=== PATIENT | female | born 1995 | race African-American/Black ===

== ENCOUNTER 2022-09-20 15:29 | Inpatient (IN) | payer OTHER, SELFPAY ==
[2022-09-20 15:38] VITALS: BP 147/100; BP 168/110; PULSE 107; PULSE 108; RESP 18; TEMP 37.1; O2SAT 98; O2SAT 99; BMI 33.6
--- NOTE | 2022-09-20 15:51 | MHC.CARE ---
Pt was evaluated in the community by TANISHA. She is a inpatient bedsearch
--- NOTE | 2022-09-20 15:52 | ED.PSYCH ---
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 (<3.5-17.0) ng/L Total Protein (6.5-8.0) g/dL Albumin (3.5-5.0) g/dL Beta HCG, Quant mIU/mL Urine Color Urine Appearance Urine pH (5.0-9.0) Ur Specific [place] (1.005-1.025) Urine Protein (Neg-Trace) mg/dL Urine Glucose (UA) (Negative) mg/dL Urine Ketones (Negative) mg/dL Urine Blood (Negative) Urine Nitrite (Negative) Ur Leukocyte Esterase (Negative) Urine RBC (0-2) /HPF Urine WBC (0-5) /HPF Ur Squamous Epith Cells (0-2) /HPF Urine Bacteria (None Seen) Hyaline Casts (0-2) /LPF Urine Opiates Screen (Not Detect) Urine Fentanyl Screen (Not Detect) Ur Barbiturates Screen (Not Detect) Ur Phencyclidine Scrn (Not Detect) Ur Amphetamines Screen (Not Detect) U Benzodiazepines Scrn (Not Detect) Urine Cocaine Screen (Not Detect) U Marijuana (THC) Screen (Not Detect) Ethyl Alcohol < 10 mg/dL Chlam trachomat DNA PCR (Not Detect.) COVID-19 (RIDDHI) (Negative) COVID-19 Clin Com HIV 1&2 Ab/P24 Ag 4thGn (Nonreactive) N.gonorrhoeae DNA (PCR) (Not Detect.) 09/20/22 Range/Units 16:54 WBC (4.8-10.8) X10*3/uL RBC (4.20-5.50) X10*6/uL Hgb (12.0-16.0) g/dl Hct (37.0-47.0) % MCV (80.0-98.0) fL MCH (27.0-33.0) pg MCHC (31.0-35.0) g/dl RDW (11.0-16.0) % Plt Count (160-400) X10*3/uL MPV (9.4-12.3) fL Immature Gran % (Auto) (0.0-0.4) % Neut % (Auto) (45-73) % Lymph % (Auto) (20-40) % [place] % (Auto) (2-11) % Eos % (Auto) (0-4) % Baso % (Auto) (0-2) % Lymph # (Auto) (1.2-4.9) X10*3/uL [place] # (Auto) (0.1-1.2) X10*3/uL Eos # (Auto) (0.0-0.4) X10*3/uL Baso # (Auto) (0.0-0.2) X10*3/uL Abs Immat Gran (auto) (0.00-0.03) X10*3/uL Absolute Neuts (auto) (2.0-8.3) x10*3/uL Absolute Nucleated RBC (0.0-0.012) X10*3/uL Nucleated RBC % (auto) (0.0-0.2) /100WBC PT (10.0-13.1) SEC INR (0.9-1.1) Sodium (135-145) mmol/L Potassium (3.3-5.1) mmol/L Chloride (96-108) mmol/L Carbon Dioxide (22-29) mmol/L Anion Gap (12-20) BUN (9-16) mg/dL Creatinine (0.5-1.4) mg/dL Estim Creat Clear Calc Estimated GFR Random Glucose (60-115) mg/dL Calcium (8.4-10.2) mg/dL Total Bilirubin (0.0-1.0) mg/dL Direct Bilirubin (0.0-0.5) mg/dL AST (5-31) U/L ALT (0-31) U/L Alkaline Phosphatase (39-117) U/L Troponin I High Sens (<3.5-17.0) ng/L Total Protein (6.5-8.0) g/dL Albumin (3.5-5.0) g/dL Beta HCG, Quant mIU/mL Urine Color Urine Appearance Urine pH (5.0-9.0) Ur Specific [place] (1.005-1.025) Urine Protein (Neg-Trace) mg/dL Urine Glucose (UA) (Negative) mg/dL Urine Ketones (Negative) mg/dL Urine Blood (Negative) Urine Nitrite (Negative) Ur Leukocyte Esterase (Negative) Urine RBC (0-2) /HPF Urine WBC (0-5) /HPF Ur Squamous Epith Cells (0-2) /HPF Urine Bacteria (None Seen) Hyaline Casts (0-2) /LPF Urine Opiates Screen (Not Detect) Urine Fentanyl Screen (Not Detect) Ur Barbiturates Screen (Not Detect) Ur Phencyclidine Scrn (Not Detect) Ur Amphetamines Screen (Not Detect) U Benzodiazepines Scrn (Not Detect) Urine Cocaine Screen (Not Detect) U Marijuana (THC) Screen (Not Detect) Ethyl Alcohol mg/dL Chlam trachomat DNA PCR NOT DETECTED (Not Detect.) COVID-19 (RIDDHI) (Negative) COVID-19 Clin Com HIV 1&2 Ab/P24 Ag 4thGn (Nonreactive) N.gonorrhoeae DNA (PCR) NOT DETECTED (Not Detect.) <Chad Nails MD - Last Filed: 09/21/22 13:05> Discharge Plan Discharge Patient Disposition: Admitted As Inpatient <Megan Hernández MD - Last Filed: 09/20/22 17:14> Prescriptions: No Action nifedipine 30 mg tablet extended release 24hr 1 tab PO DAILY melatonin 3 mg tablet 2 tab PO QPM hydroxyzine HCl 25 mg tablet 1 tab PO TID PRN (Reason: Anxiety) aripiprazole 5 mg tablet 1.5 tab PO DAILY Slynd 4 mg (28) tablet 1 tab PO DAILY <Megan Hernández MD - Last Filed: 09/20/22 17:14>
--- NOTE | 2022-09-20 15:58 | PC.NURSE ---
per conversation with hemant (shari, ) pt was seen in the community and is a bed search.
[2022-09-20 16:11] LABS: Appearance Urine Clear; Color Urine Yellow; Glucose Urine UA Negative (Negative); Leukocyte Esterase Urine Negative (Negative); Nitrite Urine Negative (Negative); PH 7.5 (5.0-9.0); Specific Gravity - Urine <= 1.005 (1.005-1.025); UMIC TRIGGER UACC YES; Urine Blood Small (1+) (Negative); Urine Ketones Negative (Negative); Urine Protein Negative (Neg-Trace)
--- NOTE | 2022-09-20 16:12 | PC.NURSE ---
pt a/o x 3 no sob/luisito speaks in full sentences. noted skin pink warm dry. pt states that she tried to jump out of a window 3 months ago after giving pt is c/o 10/10 head, chest pain/disc and summer leg pain/disc. pt is calm and co-op. pt is a bed search.
--- NOTE | 2022-09-20 16:21 | ECG_ITS ---
Test Reason : CP Blood Pressure : / mmHG Vent. Rate : 109 BPM Atrial Rate : 109 BPM P-R Int : 164 ms QRS Dur : 078 ms QT Int : 328 ms P-R-T Axes : 070 064 051 degrees QTc Int : 441 ms Sinus tachycardia Possible Left atrial enlargement Borderline ECG No previous ECGs available Referred By: Megan Hernández Electronically Signed By:MICHAEL ENGLAND MD
[2022-09-20 16:24] LABS: MANUAL DIFF FLAG NO
[2022-09-20 16:26] LABS: Amphetamine Screen Urine Not Detected (Not Detect); Barbiturates, Urine Not Detected (Not Detect); Benzodiazepines Screen Urine Not Detected (Not Detect); Cannabinoid Screen Urine Not Detected (Not Detect); Cocaine Screen Urine Not Detected (Not Detect); Fentanyl, urine Not Detected (Not Detect); Opiate Screen Urine Not Detected (Not Detect); Phencyclidine Screen Urine Not Detected (Not Detect)
[2022-09-20 16:27] LABS: Bacteria Urine None Seen (None Seen); COVID-19 Test Negative (Negative); Hyaline Casts Urine 0-2 /LPF (0-2); RBC Urine 0-2 /HPF (0-2); Squamous Epithelial Cell Urine 0-2 /HPF (0-2); WBC Urine 0-5 /HPF (0-5)
[2022-09-20 16:28] LABS: Basophils Absolute Auto 0.1 X10*3/uL (0.0-0.2); Basophils Percent Auto 0.5 % (0-2); Eosinophils Percent Auto 0.1 % (0-4); Hematocrit 39.4 % (37.0-47.0); Hemoglobin 13.2 g/dl (12.0-16.0); Imm Gran Abs Auto 0.03 X10*3/uL (0.00-0.03); Imm Gran Pct Auto 0.2 % (0.0-0.4); Lymphocytes Absolute Auto 2.8 X10*3/uL (1.2-4.9); Lymphocytes Percent Auto 22.6 % (20-40); Mean Corpuscular HGB Conc 33.5 g/dl (31.0-35.0); Mean Corpuscular Hemoglobin 27.3 pg (27.0-33.0); Mean Corpuscular Volume 81.6 fL (80.0-98.0); Monocytes Absolute Auto 0.8 X10*3/uL (0.1-1.2); Monocytes Percent Auto 6.3 % (2-11); Neutrophils Absolute Auto 8.6 x10*3/uL (2.0-8.3); Neutrophils Percent Auto 70.3 % (45-73); Platelet Count 376 X10*3/uL (160-400); Red Blood Count 4.83 X10*6/uL (4.20-5.50); Red Cell Distribution Width 12.4 % (11.0-16.0); White Blood Count 12.3 X10*3/uL (4.8-10.8)
[2022-09-20 16:35] LABS: Prothrombin Time 11.9 SEC (10.0-13.1)
--- NOTE | 2022-09-20 16:38 | PC.NURSE ---
hemant smart sheet faxed by this rn.
--- NOTE | 2022-09-20 16:41 | PC.NURSE ---
pt's name is kizzy ([phone]).
[2022-09-20 16:42] LABS: Ethanol < 10 mg/dL
--- NOTE | 2022-09-20 16:52 | PHA.MEDREC ---
Addendum entered by Roseann Fernandez [facility] 09/21/22 11:05: Contacted patient's PCP Ling Page NP. There is no record of any medications or any talk of patient needing anything for diabetes Addendum entered by Vic Osuna [facility] 09/20/22 17:21: Spoke to patient and she said she was on a new medication for diabetes. Will follow up in am with office to get name as no claim history and [facility] Original Note: Pharmacy Consult ? Medication Reconciliation Pharmacy has completed the medication reconciliation. Spoke to her about medication history. Patient recently started abilify and the believes its not helping and working against her. Previously she was on olanzapine 2.5 in am and 7.5 bedtime
[2022-09-20 16:59] LABS: Alanine Aminotransferase 25 U/L (0-31); Albumin Level 5.2 g/dL (3.5-5.0); Alkaline Phosphatase 96 U/L (39-117); Anion Gap 17 (12-20); Aspartate Amino Transferase 27 U/L (5-31); Bilirubin Direct 0.2 mg/dL (0.0-0.5); Bilirubin Total 0.5 mg/dL (0.0-1.0); Blood Urea Nitrogen 4 mg/dL (9-16); Calcium 10.6 mg/dL (8.4-10.2); Carbon Dioxide 24 mmol/L (22-29); Chloride 103 mmol/L (96-108); Estimated Glomerular Filt Rate > 60; Glucose Random 99 mg/dL (60-115); HCG Quantitative < 2 mIU/mL; Potassium 3.9 mmol/L (3.3-5.1); Sodium 140 mmol/L (135-145); Total Protein 8.5 g/dL (6.5-8.0)
[2022-09-20 17:17] LABS: Troponin-I High Sensitivity < 3.5 ng/L (<3.5-17.0)
[2022-09-20] MEDS: HaloperidoL 5 MG TABLET PO (18:20)
[2022-09-20] MEDS: diphenhydrAMINE HCL 25 MG CAPSULE 50 MG PO (18:20)
[2022-09-20 20:00] VITALS: RESP 18
[2022-09-20 23:29] VITALS: BP 135/93; PULSE 84; RESP 15; TEMP 36.9; O2SAT 98
[2022-09-21 06:00] VITALS: RESP 18
[2022-09-21 06:33] LABS: HIV AB/AG Nonreactive (Nonreactive); HIV Num 1 0.08 S/CO (0.00-0.99)
--- NOTE | 2022-09-21 06:47 | PC.NURSE ---
report given to HARRISON Alejandre
[2022-09-21] MEDS: Nicotine 21 MG PATCH.TD24 TRANSDERMA (08:40)
[2022-09-21] MEDS: ARIPiprazole 5 MG TABLET 7.5 MG PO (08:40)
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
[2022-09-21] MEDS: NIFEdipine ER 30 MG TAB.ER.24 PO (08:56)
[2022-09-21 09:18] LABS: CT PCR NOT DETECTED (Not Detect.); NG PCR NOT DETECTED (Not Detect.)
[2022-09-21 09:24] VITALS: BP 117/90; PULSE 106; RESP 16; TEMP 36.8; O2SAT 100
[2022-09-21 14:00] VITALS: RESP 18
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
[2022-09-21 16:53] VITALS: BP 134/90; PULSE 110; RESP 16; TEMP 36.6; O2SAT 99
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
[2022-09-21] MEDS: Benztropine Mesylate 0.5 MG TABLET PO (22:07)
[2022-09-21] MEDS: Melatonin 3 MG TABLET 6 MG PO (22:08)
[2022-09-22] MEDS: Acetaminophen 325 MG TABLET 650 MG PO (02:38)
[2022-09-22] MEDS: traZODone HCL 50 MG TABLET PO (03:03)
[2022-09-22 08:23] VITALS: BP 144/98; PULSE 132; RESP 19; TEMP 36.3; O2SAT 96
[2022-09-22] MEDS: NIFEdipine ER 30 MG TAB.ER.24 PO (08:24)
[2022-09-22] MEDS: Benztropine Mesylate 0.5 MG TABLET PO (08:24)
[2022-09-22] MEDS: ARIPiprazole 10 MG TABLET PO (08:24)
[2022-09-22 09:21] LABS: Estimated Average Glucose 105 mg/dL; Hemoglobin A1c % 5.3 %
[2022-09-22 09:23] LABS: Alanine Aminotransferase 26 U/L (0-31); Albumin Level 5.1 g/dL (3.5-5.0); Alkaline Phosphatase 105 U/L (39-117); Aspartate Amino Transferase 25 U/L (5-31); Bilirubin Direct 0.3 mg/dL (0.0-0.5); Bilirubin Total 0.8 mg/dL (0.0-1.0); Cholesterol 180 mg/dL; HDL Cholesterol 52 mg/dL; LDL Cholesterol Calculated 106 mg/dl; Total Protein 8.5 g/dL (6.5-8.0); Triglycerides 112 mg/dL
[2022-09-22 09:47] LABS: Free T4 (Free Thyroxine) 1.17 ng/dL (0.71-1.85); Thyroid Stimulating Hormone 0.84 uIU/mL (0.32-4.0)
[2022-09-22 09:57] LABS: Folate 19.6 ng/mL (> or = 4.0); Vitamin B12 1694 pg/mL (200-900)
[2022-09-22] MEDS: Nicotine 21 MG PATCH.TD24 TRANSDERMA (10:39)
[2022-09-22] MEDS: QUEtiapine Fumarate 50 MG TABLET PO (15:02)
[2022-09-22 16:49] VITALS: BP 123/88; PULSE 123
--- NOTE | 2022-09-22 16:50 | PC.NURSE ---
Addendum entered by Margarita Benjamin RN 09/22/22 17:27: Per Dr. Herr recommend transferring patient to medical floor Original Note: RN was alerted by patients 1:1 staff member that patient had significant amount of vaginal bleeding. BP 123/88 and HR of 123. Charlotte Jensen WRAPPING CLERK notified.
--- NOTE | 2022-09-22 17:10 | HO.PSYCHPN ---
Subjective Subjective Date of Service: 09/22/22 Reason For Visit: Psychosis SI Interim History: Discussed with team. Pt's 1:1 reports pt has been having significant vaginal bleeding, dark in color. Pt confirms this. Of note, she is not nursing her 3 mo old, no . Hospitalist consult ordered and Dr. Herr saw pt, initially recommended obtaining CBC, OBGYN consult, and IV fluids, however decision was ultimately made to have pt transferred to [facility] for further monitoring. I spoke with pt's RN, who reports pt has presented as disorganized in the day. I spoke with pt, says she is still having night tears and she feels lifeless. She still feels jumpy, unclear if this is anxiety or akathesia, denies benefit on cogentin. Says she slept well last night. Still having AH but says this is baseline, they've always been there. Says my mood is better. Napped today. Still feeling dizzy, cramping, able to eat a little. Still wants to increase abilify. Mental Status Exam Mental Status Exam Narrative: A&O. Overweight, casual attire, laying down in bed. Good eye contact, attentive. No Tics or Tremors. No abnormal involuntary movements. Psychomotor agitation, pacing, cooperative, engaged. Non-pressured speech, spontaneous with regular rate and rhythm, normal volume and prosody. No prolonged speech latency or dysarthria. Mood is ?better,? affect is anxious. Denies SI/SIB/HI upon inquiry. Endorses command A/VH, paranoid delusional thought content. Thoughts are tangential. No known cognitive or memory impairment. Insight/ Judgment limited. Diagnostics Vital Signs (24Hr): Vital Signs - 24 hr 09/22/22 08:23 09/22/22 16:49 Temperature 97.3 F Pulse Rate 132 H 123 H Respiratory Rate 19 Blood Pressure 144/98 H 123/88 Pulse Oximetry 96 Oxygen Delivery Method Room Air BMI result Body Mass Index 33.6 Labs Results: 09/22/22 17:20 09/20/22 16:20 Labs: Laboratory Results - last 48 hr 09/20/22 09/20/22 09/20/22 16:20 16:45 16:54 Estimat Average Glucose Hemoglobin A1c % Total Bilirubin Direct Bilirubin AST ALT Alkaline Phosphatase Troponin I High Sens < 3.5 Total Protein Albumin Triglycerides Cholesterol LDL Cholesterol, Calc HDL Cholesterol Vitamin B12 Folate TSH Free T4 Chlam trachomat DNA PCR NOT DETECTED HIV 1&2 Ab/P24 Ag 4thGn Nonreactive N.gonorrhoeae DNA (PCR) NOT DETECTED 09/22/22 09/22/22 09/22/22 08:40 08:40 08:40 Estimat Average Glucose 105 Hemoglobin A1c % 5.3 Total Bilirubin 0.8 Direct Bilirubin 0.3 AST 25 ALT 26 Alkaline Phosphatase 105 Troponin I High Sens Total Protein 8.5 H Albumin 5.1 H Triglycerides 112 Cholesterol 180 LDL Cholesterol, Calc 106 HDL Cholesterol 52 Vitamin B12 1694 H Folate 19.6 TSH 0.84 Free T4 1.17 Chlam trachomat DNA PCR HIV 1&2 Ab/P24 Ag 4thGn N.gonorrhoeae DNA (PCR) Medications Medications Current Medications Acetaminophen (Acetaminophen 325 Mg Tablet) 650 mg PO Q6H PRN PRN Reason: Headache/Pain Mild Scale (1-3) Last Admin: 09/22/22 02:38 Dose: 650 mg Al Hydroxide/Mg Hydroxide (Magnesium Hydrox/Alum Hydrox 30 Ml Oral.Susp) 30 ml PO Q6H PRN PRN Reason: Heartburn/Nausea Aripiprazole (Aripiprazole 10 Mg Tablet) 10 mg PO DAILY [facility] Last Admin: 09/22/22 08:24 Dose: 10 mg Benztropine Mesylate (Benztropine Mesylate 0.5 Mg Tablet) 0.5 mg PO BID [facility] Last Admin: 09/22/22 08:24 Dose: 0.5 mg Hydroxyzine HCl (Hydroxyzine Hcl 25 Mg Tablet) 25 mg PO TID PRN PRN Reason: Anxiety Magnesium Hydroxide (Milk Of Magnesia 30 Ml Oral.Susp) 30 ml PO DAILY PRN PRN Reason: Constipation Melatonin (Melatonin 3 Mg Tablet) 6 mg PO DAILY@2100 [facility] Last Admin: 09/21/22 22:08 Dose: 6 mg Nicotine (Nicotine 21 Mg Patch.Td24) 21 mg TRANSDERMA DAILY [facility] Last Admin: 09/22/22 10:39 Dose: 21 mg Nicotine Polacrilex (Nicotine Polacrilex 2 Mg Gum) 4 mg BUCCAL Q2H PRN PRN Reason: Nicotine Cravings Nifedipine (Nifedipine Er 30 Mg Tab.Er.24) 30 mg PO DAILY [facility]; Protocol Last Admin: 09/22/22 08:24 Dose: 30 mg Non-Formulary Medication (Drospirenone (Contraceptive) [Slynd]) 1 tab PO DAILY [facility] Quetiapine Fumarate (Quetiapine Fumarate 50 Mg Tablet) 50 mg PO Q2H PRN PRN Reason: agitation Last Admin: 09/22/22 15:02 Dose: 50 mg Trazodone HCl (Trazodone Hcl 50 Mg Tablet) 50 mg PO BEDTIME PRN PRN Reason: Insomnia Last Admin: 09/22/22 03:03 Dose: 50 mg Allergies Allergies Allergy/AdvReac Type Severity Reaction Status Date / Time No Known Allergies Allergy Unverified 07/29/20 18:47 Assessment & Plan Assessment & Plan (1) Schizoaffective disorder, bipolar type: Status: Acute Code(s): F25.0 - Schizoaffective disorder, bipolar type (2) psychosis: Status: Acute Code(s): 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 Who carries a dx of schizoaffective disorder, bipolar type, PTSD. She presented to [facility] ED due to depression, SI, and command AH. Pt is 3 months . Endorses hyposomnia, mood lability, flashbacks, nightmares, and activation. Having delusional thought process. Hx of [facility], recently discharged from [facility] on abilify 7.5 mg but does not think this dose is high enough, complains of s/s of akathesia. Plan: Pt willing to trial higher dose of abilify to target psychotic sx and mood lability, will increase to 10 mg daily and add cogentin 0.5 mg BID. 09/22: Increase abilify to 15 mg, transfer to [facility] with plan to return to psych inpatient level of care for further med management and stability. Q15 min safety checks, CV Monitor response to medications. Monitor for safety in the milieu. Discharge on stabilization. Patient seen. Chart reviewed. Discussed with team. Obtain collateral contact info?as needed I spent minutes with the patient and/or on the patient floor today, greater than?50% of which was spent counseling/coordinating care. Patient educated on: diagnosis, medication risk/benefits and therapeutic strategies Reason for contiued inpatient stay Substantial Risk for: harm to self, rapid decompensation and med/psych decompensation
--- NOTE | 2022-09-22 17:17 | PM.IMHP ---
History of Present Illness Date of Service: 09/22/22 Chief Complaint: Vaginal bleed 27-year-old female on Adult psych who developed vaginal bleeding. Patient is 2 and half months of her 5th child. She had sitter present who stated there was blood on toilet paper and in toilet but could not qualify or quantify. When further questioned, patient states this happened after her last child and they did no specific intervention other than observed. At this time clinical presentation is stable however she is tachycardic. Decision was made to admit to the medical service and consult obgyn nurse Review of Systems Review of Systems: Denies chest pain Denies shortness of breath Denies nausea vomiting diarrhea Denies fever chills [facility] Medical History (Updated 09/22/22 @ 02:19 by Charlotte Jensen NP) psychosis Social History Household Members: Significant Other and Children Housing: Apartment Do you presently have visiting nurse or other home services: No Alcohol intake: current Patient Tobacco Use Status: Current everyday Tobacco user Tobacco use type: Cigarette Cigarette Packs Per Day: 2 Cigarettes Per Day: 40.0 Years Smoked: 15 Second Hand Smoke Exposure: Yes Advance Directives: No Advance Directives Information Provided: Yes service: No Sexual orientation: Straight/Heterosexual Meds Allergies Allergy/AdvReac Type Severity Reaction Status Date / Time No Known Allergies Allergy Unverified 07/29/20 18:47 Active Medications: Current Medications Acetaminophen (Acetaminophen 325 Mg Tablet) 650 mg PO Q6H PRN PRN Reason: Headache/Pain Mild Scale (1-3) Last Admin: 09/22/22 02:38 Dose: 650 mg Al Hydroxide/Mg Hydroxide (Magnesium Hydrox/Alum Hydrox 30 Ml Oral.Susp) 30 ml PO Q6H PRN PRN Reason: Heartburn/Nausea Aripiprazole (Aripiprazole 15 Mg Tablet) 15 mg PO DAILY [facility] Benztropine Mesylate (Benztropine Mesylate 0.5 Mg Tablet) 0.5 mg PO BID [facility] Last Admin: 09/22/22 08:24 Dose: 0.5 mg Hydroxyzine HCl (Hydroxyzine Hcl 25 Mg Tablet) 25 mg PO TID PRN PRN Reason: Anxiety Sodium Chloride (Ns) 500 mls @ 500 mls/hr IV .Q1H [facility] Stop: 09/22/22 18:14 Magnesium Hydroxide (Milk Of Magnesia 30 Ml Oral.Susp) 30 ml PO DAILY PRN PRN Reason: Constipation Melatonin (Melatonin 3 Mg Tablet) 6 mg PO DAILY@2100 [facility] Last Admin: 09/21/22 22:08 Dose: 6 mg Nicotine (Nicotine 21 Mg Patch.Td24) 21 mg TRANSDERMA DAILY [facility] Last Admin: 09/22/22 10:39 Dose: 21 mg Nicotine Polacrilex (Nicotine Polacrilex 2 Mg Gum) 4 mg BUCCAL Q2H PRN PRN Reason: Nicotine Cravings Nifedipine (Nifedipine Er 30 Mg Tab.Er.24) 30 mg PO DAILY [facility]; Protocol Last Admin: 09/22/22 08:24 Dose: 30 mg Non-Formulary Medication (Drospirenone (Contraceptive) [Slynd]) 1 tab PO DAILY [facility] Quetiapine Fumarate (Quetiapine Fumarate 50 Mg Tablet) 50 mg PO Q2H PRN PRN Reason: agitation Last Admin: 09/22/22 15:02 Dose: 50 mg Trazodone HCl (Trazodone Hcl 50 Mg Tablet) 50 mg PO BEDTIME PRN PRN Reason: Insomnia Last Admin: 09/22/22 03:03 Dose: 50 mg Home Medications Medication Instructions Recorded Confirmed Last Taken Type aripiprazole 5 mg tablet 1.5 tab PO DAILY 09/20/22 09/20/22 09/20/22 History drospirenone (contraceptive) 4 mg 1 tab PO DAILY 09/20/22 09/20/22 09/20/22 History (28) tablet (Slynd) hydroxyzine HCl 25 mg tablet 1 tab PO TID PRN Anxiety 09/20/22 09/20/22 Unknown History melatonin 3 mg tablet 2 tab PO QPM 09/20/22 09/20/22 09/20/22 History nifedipine 30 mg tablet,extended 1 tab PO DAILY 09/20/22 09/20/22 09/20/22 History release 24 hr Physical Exam Vital Signs and Narrative: Vital Signs: Last Vital Signs Temp 97.3 F 09/22/22 08:23 Pulse 123 H 09/22/22 16:49 Resp 19 09/22/22 08:23 BP 123/88 09/22/22 16:49 Pulse Ox 96 09/22/22 08:23 O2 Del Method 09/22/22 08:23 BMI result Body Mass Index 33.6 Const: Other: Awake alert no acute distress HEENT: Other: Membranes moist Resp: Other: Clear to auscultation bilaterally no rales rhonchi or wheezes Cardio: Other: Tachy; no S4; positive S1-S2; no S3 murmurs rubs or gallops GI: Other: Soft nontender nondistended. Normal bowel sounds throughout Extrem: Other: No edema bilaterally Results Labs CBC and Chem 7: 09/20/22 16:20 09/20/22 16:20 Labs: Laboratory Results - last 24 hr 09/22/22 09/22/22 09/22/22 08:40 08:40 08:40 Estimat Average Glucose 105 Hemoglobin A1c % 5.3 Total Bilirubin 0.8 Direct Bilirubin 0.3 AST 25 ALT 26 Alkaline Phosphatase 105 Total Protein 8.5 H Albumin 5.1 H Triglycerides 112 Cholesterol 180 LDL Cholesterol, Calc 106 HDL Cholesterol 52 Vitamin B12 1694 H Folate 19.6 TSH 0.84 Free T4 1.17 Assessment and Plan (1) Vaginal bleeding: Status: Acute (2) psychosis: Status: Acute Plan 27-year-old female 2.5 months on Adult psych for psychosis developed vaginal bleeding. She states this has happened after previous pregnancies. She complains of dizziness and some chills at this time. 1. vaginal bleeding -will admit to the medical service and observe on telemetry -CBC/type and screen stat -500 cc fluid bolus with normal saline -consult OBGYN 2. psychosis -continue therapies as per psych recommendation -will need one-to-one sitter Patient will require 2 midnights inpatient stay to treat vaginal bleeding and evaluate etiology. This cannot be achieved a lesser acute setting
[2022-09-22 17:27] LABS: MANUAL DIFF FLAG NO
[2022-09-22] MEDS: LORazepam 0.5 MG TABLET PO (17:27)
[2022-09-22 17:28] LABS: Basophils Percent Auto 0.4 % (0-2); Eosinophils Absolute Auto 0.1 X10*3/uL (0.0-0.4); Eosinophils Percent Auto 0.6 % (0-4); Hematocrit 37.8 % (37.0-47.0); Hemoglobin 12.9 g/dl (12.0-16.0); Imm Gran Abs Auto 0.03 X10*3/uL (0.00-0.03); Imm Gran Pct Auto 0.3 % (0.0-0.4); Lymphocytes Absolute Auto 3.2 X10*3/uL (1.2-4.9); Lymphocytes Percent Auto 29.2 % (20-40); Mean Corpuscular HGB Conc 34.1 g/dl (31.0-35.0); Mean Corpuscular Hemoglobin 28.5 pg (27.0-33.0); Mean Corpuscular Volume 83.4 fL (80.0-98.0); Mean Platelet Volume 9.9 fL (9.4-12.3); Monocytes Absolute Auto 0.6 X10*3/uL (0.1-1.2); Monocytes Percent Auto 5.9 % (2-11); Neutrophils Absolute Auto 6.9 x10*3/uL (2.0-8.3); Neutrophils Percent Auto 63.6 % (45-73); Platelet Count 333 X10*3/uL (160-400); Red Blood Count 4.53 X10*6/uL (4.20-5.50); Red Cell Distribution Width 12.6 % (11.0-16.0); White Blood Count 10.8 X10*3/uL (4.8-10.8)
--- NOTE | 2022-09-25 16:29 | P.PNPSI_ITS ---
Subjective Subjective Reason For Visit: Psychosis SI Diagnostics Vital Signs (24Hr): BMI result Body Mass Index 33.6 Labs Results: 09/22/22 17:20 09/20/22 16:20 Medications Allergies Allergies Allergy/AdvReac Type Severity Reaction Status Date / Time No Known Allergies Allergy Unverified 07/29/20 18:47 Assessment & Plan Assessment & Plan (1) Schizoaffective disorder, bipolar type: Status: Acute Code(s): F25.0 - Schizoaffective disorder, bipolar type (2) psychosis: Status: Acute Code(s): 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 Who carries a dx of schizoaffective disorder, bipolar type, PTSD. She presented to [facility] ED due to depression, SI, and command AH. Pt is 3 months . Endorses hyposomnia, mood lability, flashbacks, nightmares, and activation. Having delusional thought process. Hx of [facility], recently discharged from [facility] on abilify 7.5 mg but does not think this dose is high enough, complains of s/s of akathesia. Plan: Pt willing to trial higher dose of abilify to target psychotic sx and mood lability, will increase to 10 mg daily and add cogentin 0.5 mg BID. 09/22: Increase abilify to 15 mg, transfer to [facility] with plan to return to psych inpatient level of care for further med management and stability. Q15 min safety checks, CV Monitor response to medications. Monitor for safety in the milieu. Discharge on stabilization. Patient seen. Chart reviewed. Discussed with team. Obtain collateral contact info?as needed I spent minutes with the patient and/or on the patient floor today, greater than?50% of which was spent counseling/coordinating care.
--- NOTE | 2022-09-26 17:23 | P.PNPSI_ITS ---
Subjective Subjective Reason For Visit: Psychosis SI Mental Status Exam Mental Status Exam Narrative: A&O. Overweight, casual attire, laying down in bed. Good eye contact, attentive. No Tics or Tremors. No abnormal involuntary movements. Psychomotor agitation, p acing, cooperative, engaged. Non-pressured speech, spontaneous with regular rate and rhythm, normal volume and prosody. No prolonged speech latency or dysarthria. Mood is ?better,? affect is anxious. Denies SI/SIB/HI upon inquiry. Endorses command A/VH, paranoid delusional thought content. Thoughts are tangential. No known cognitive or memory impairment. Insight/ Judgment limited. 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
== END 2022-09-22 17:49 | disposition swing bed (61) | DRG 750 ==
LOC: HO.ED 09-21 14:09 → HO.PADLT16 09-21 15:14
PROVIDERS: Emergency Medicine; Internal Medicine; Registered Nurse; Admitting Provider Psychiatry & Neurology Psychiatry; Emergency Provider Emergency Medicine Emergency Medical Services; Visit Provider Psychiatry & Neurology Psychiatry
DX: F25.0 Schizoaffective disorder, bipolar type (principal); R45.851 Suicidal ideations; F53.1 Puerperal psychosis; F43.10 Post-traumatic stress disorder, unspecified; N93.9 Abnormal uterine and vaginal bleeding, unspecified; F17.210 Nicotine dependence, cigarettes, uncomplicated; Z20.822 Contact with and (suspected) exposure to COVID-19; Z71.6 Tobacco abuse counseling; Z79.899 Other long term (current) drug therapy
CPT/HCPCS: 36415; 80048; 80061; 80076; 80307; 81001; 82077; 82607; 82746; 83036; 84439; 84443; 84484; 84702; 85025; 85610; 87389; 87491; 87591; 87635; 90686; 90792; 93005; 99285

== ENCOUNTER 2022-09-22 17:52 | Inpatient (IN) | payer OTHER, SELFPAY ==
--- NOTE | 2022-09-22 | ECG_ITS ---
Test Reason : tachycardia Blood Pressure : / mmHG Vent. Rate : 106 BPM Atrial Rate : 106 BPM P-R Int : 170 ms QRS Dur : 074 ms QT Int : 326 ms P-R-T Axes : 065 051 034 degrees QTc Int : 433 ms Sinus tachycardia Otherwise normal ECG When compared with ECG of 20-SEP-2022 16:28, Nonspecific T wave abnormality no longer evident in Anterior leads Referred By: Alysha Méndez Electronically Signed By:MICHAEL ENGLAND MD
--- NOTE | 2022-09-22 17:17 | PM.IMHP ---
History of Present Illness Date of Service: 09/22/22 Chief Complaint: Vaginal bleed 27-year-old female on Adult psych who developed vaginal bleeding. Patient is 2 and half months of her 5th child. She had sitter present who stated there was blood on toilet paper and in toilet but could not qualify or quantify. When further questioned, patient states this happened after her last child and they did no specific intervention other than observed. At this time clinical presentation is stable however she is tachycardic. Decision was made to admit to the medical service and consult retail sales advisor Review of Systems Review of Systems: Denies chest pain Denies shortness of breath Denies nausea vomiting diarrhea Denies fever chills [facility] Medical History (Updated 09/30/22 @ 00:02 by Ara Keller) Post traumatic stress disorder (PTSD) hypertension psychosis Vaginal bleeding Family History Family/Other Mental health disorder Substance abuse Social History Household Members: Significant Other and Children Housing: House Do you presently have visiting nurse or other home services: No Alcohol intake: current Patient Tobacco Use Status: Current everyday Tobacco user Tobacco use type: Cigarette Cigarette Packs Per Day: 2 Cigarettes Per Day: 40.0 Years Smoked: 15 Second Hand Smoke Exposure: Yes Substance Use Type: Marijuana service: No Current occupational status: unemployed Sexual orientation: Straight/Heterosexual Meds Allergies Allergy/AdvReac Type Severity Reaction Status Date / Time No Known Allergies Allergy Unverified 07/29/20 18:47 Active Medications: Current Medications Acetaminophen (Acetaminophen 325 Mg Tablet) 650 mg PO Q6H PRN PRN Reason: Headache/Pain Mild Scale (1-3) Last Admin: 09/22/22 02:38 Dose: 650 mg Al Hydroxide/Mg Hydroxide (Magnesium Hydrox/Alum Hydrox 30 Ml Oral.Susp) 30 ml PO Q6H PRN PRN Reason: Heartburn/Nausea Aripiprazole (Aripiprazole 15 Mg Tablet) 15 mg PO DAILY [facility] Benztropine Mesylate (Benztropine Mesylate 0.5 Mg Tablet) 0.5 mg PO BID [facility] Last Admin: 09/22/22 08:24 Dose: 0.5 mg Hydroxyzine HCl (Hydroxyzine Hcl 25 Mg Tablet) 25 mg PO TID PRN PRN Reason: Anxiety Sodium Chloride (Ns) 500 mls @ 500 mls/hr IV .Q1H [facility] Stop: 09/22/22 18:14 Magnesium Hydroxide (Milk Of Magnesia 30 Ml Oral.Susp) 30 ml PO DAILY PRN PRN Reason: Constipation Melatonin (Melatonin 3 Mg Tablet) 6 mg PO DAILY@2100 [facility] Last Admin: 09/21/22 22:08 Dose: 6 mg Nicotine (Nicotine 21 Mg Patch.Td24) 21 mg TRANSDERMA DAILY [facility] Last Admin: 09/22/22 10:39 Dose: 21 mg Nicotine Polacrilex (Nicotine Polacrilex 2 Mg Gum) 4 mg BUCCAL Q2H PRN PRN Reason: Nicotine Cravings Nifedipine (Nifedipine Er 30 Mg Tab.Er.24) 30 mg PO DAILY [facility]; Protocol Last Admin: 09/22/22 08:24 Dose: 30 mg Non-Formulary Medication (Drospirenone (Contraceptive) [Slynd]) 1 tab PO DAILY [facility] Quetiapine Fumarate (Quetiapine Fumarate 50 Mg Tablet) 50 mg PO Q2H PRN PRN Reason: agitation Last Admin: 09/22/22 15:02 Dose: 50 mg Trazodone HCl (Trazodone Hcl 50 Mg Tablet) 50 mg PO BEDTIME PRN PRN Reason: Insomnia Last Admin: 09/22/22 03:03 Dose: 50 mg Home Medications Medication Instructions Recorded Confirmed Last Taken Type drospirenone (contraceptive) 4 mg 1 tab PO DAILY 09/20/22 09/23/22 09/20/22 History (28) tablet (Slynd) melatonin 3 mg tablet 2 tab PO QPM 09/20/22 09/23/22 09/20/22 History nifedipine 30 mg tablet,extended 1 tab PO DAILY 09/20/22 09/23/22 09/20/22 History release 24 hr Physical Exam Vital Signs and Narrative: Vital Signs: Last Vital Signs Temp 97.3 F 09/22/22 08:23 Pulse 123 H 09/22/22 16:49 Resp 19 09/22/22 08:23 BP 123/88 09/22/22 16:49 Pulse Ox 96 09/22/22 08:23 O2 Del Method 09/22/22 08:23 BMI result Body Mass Index 33.6 Const: Other: Awake alert no acute distress HEENT: Other: Membranes moist Resp: Other: Clear to auscultation bilaterally no rales rhonchi or wheezes Cardio: Other: Tachy; no S4; positive S1-S2; no S3 murmurs rubs or gallops GI: Other: Soft nontender nondistended. Normal bowel sounds throughout Extrem: Other: No edema bilaterally Results Labs CBC and Chem 7: 09/23/22 07:43 Labs: Laboratory Results - last 24 hr 09/22/22 09/22/22 09/22/22 08:40 08:40 08:40 Estimat Average Glucose 105 Hemoglobin A1c % 5.3 Total Bilirubin 0.8 Direct Bilirubin 0.3 AST 25 ALT 26 Alkaline Phosphatase 105 Total Protein 8.5 H Albumin 5.1 H Triglycerides 112 Cholesterol 180 LDL Cholesterol, Calc 106 HDL Cholesterol 52 Vitamin B12 1694 H Folate 19.6 TSH 0.84 Free T4 1.17 Assessment and Plan (1) Vaginal bleeding: Status: Inactive (2) psychosis: Status: Inactive Plan 27-year-old female 2.5 months on Adult psych for psychosis developed vaginal bleeding. She states this has happened after previous pregnancies. She complains of dizziness and some chills at this time. 1. vaginal bleeding -will admit to the medical service and observe on telemetry -CBC/type and screen stat -500 cc fluid bolus with normal saline -consult OBGYN 2. psychosis -continue therapies as per psych recommendation -will need one-to-one sitter Patient will require 2 midnights inpatient stay to treat vaginal bleeding and evaluate etiology. This cannot be achieved a lesser acute setting Quality Stroke Does the patient have a stroke diagnosis?: No VTE Prior VTE?: No VTE Risk Level:: Medical - low VTE Device Contraindication: Treatment Not Indicated VTE Drug Contraindication: Treatment Not Indicated
[2022-09-22 18:13] VITALS: BP 140/98; PULSE 122; RESP 19; TEMP 36.5; O2SAT 92
--- NOTE | 2022-09-22 22:46 | PC.NURSE ---
heart rate 80's at rest when sleeping, ambulate to the bathroom and HR up to 150 , denied any sob, scant amount of the bloody discharge from vagina
--- NOTE | 2022-09-22 22:48 | PC.NURSE ---
admitted to [facility] room 484 from [facility], pt alert and oriented, flat affect, cooperative, vague at times, IV access # 22 to left hand. bloody spots on the depends
[2022-09-23] VITALS: BP 138/88; PULSE 118; RESP 20; TEMP 37; O2SAT 98
[2022-09-23] MEDS: 0.9 % Sodium Chloride 1,000 ML 999 ML IV (00:27)
[2022-09-23] MEDS: Melatonin 3 MG TABLET 6 MG PO (05:32)
[2022-09-23 07:46] LABS: MANUAL DIFF FLAG NO
[2022-09-23 07:49] VITALS: BP 132/87; PULSE 110; RESP 20; TEMP 36.3; O2SAT 100
[2022-09-23] MEDS: Nicotine 21 MG PATCH.TD24 TRANSDERMA (08:07)
[2022-09-23] MEDS: ARIPiprazole 15 MG TABLET PO (08:08)
[2022-09-23] MEDS: NIFEdipine ER 30 MG TAB.ER.24 PO (08:08)
[2022-09-23] MEDS: 0.9 % Sodium Chloride 500 ML IV (08:08)
[2022-09-23] MEDS: Benztropine Mesylate 0.5 MG TABLET PO (08:08)
[2022-09-23] MEDS: 0.9 % Sodium Chloride Flush 3 ML SYRINGE IVFLUSH (08:09)
[2022-09-23 08:15] LABS: Basophils Absolute Auto 0.1 X10*3/uL (0.0-0.2); Basophils Percent Auto 0.5 % (0-2); Eosinophils Absolute Auto 0.1 X10*3/uL (0.0-0.4); Eosinophils Percent Auto 1.3 % (0-4); Hematocrit 36.1 % (37.0-47.0); Hemoglobin 11.7 g/dl (12.0-16.0); Imm Gran Abs Auto 0.03 X10*3/uL (0.00-0.03); Imm Gran Pct Auto 0.3 % (0.0-0.4); Lymphocytes Absolute Auto 2.9 X10*3/uL (1.2-4.9); Lymphocytes Percent Auto 30.8 % (20-40); Mean Corpuscular HGB Conc 32.4 g/dl (31.0-35.0); Mean Corpuscular Hemoglobin 27.5 pg (27.0-33.0); Mean Corpuscular Volume 84.7 fL (80.0-98.0); Mean Platelet Volume 10.1 fL (9.4-12.3); Monocytes Absolute Auto 0.7 X10*3/uL (0.1-1.2); Neutrophils Absolute Auto 5.6 x10*3/uL (2.0-8.3); Neutrophils Percent Auto 60.1 % (45-73); Platelet Count 311 X10*3/uL (160-400); Red Blood Count 4.26 X10*6/uL (4.20-5.50); Red Cell Distribution Width 12.8 % (11.0-16.0); White Blood Count 9.4 X10*3/uL (4.8-10.8)
[2022-09-23] MEDS: Acetaminophen 325 MG TABLET 650 MG PO (08:17)
[2022-09-23] MEDS: Nicotine Polacrilex 2 MG GUM 4 MG BUCCAL ×2 (08:17→14:05)
--- NOTE | 2022-09-23 08:59 | MHC.CM.PN ---
Addendum entered by Maegan Ross 09/23/22 13:17: DP: PT MEDICALLY CLEARED FOR DC BACK TO [facility] FOR PSYCH CARE. Original Note: CM MET WITH PT, ON 1:1 SITTER. PT AMBULATING IN ROOM, RESTLESS. ADRRESS AND PHONE CONFIRMED. LIVES IN A HOUSE WITH HER SPOUSE AND STATES HE IS HER HCP. USES A CANE AT TIMES AND HAS A TUB BENCH IN HER SHOWER. NO PRIOR SERVICES. NO COVID VAX. PCP SLIM MARIA. DP: PT STATES A FRIEND, SANTOS ,WILL TRANSPORT HER HOME. CM WILL CONTINUE TO FOLLOW
--- NOTE | 2022-09-23 10:29 | PM.EVENT ---
Event Note Date of Service: 09/23/22 Event Note: Call to patient's room as patient wished to speak to me. Completely definite presentation then last night. She is alert, smiling and engaging. States she had a long conversation with behavior tech throughout the morning and got some things offer chest and feels great. Voices no self-harm statements at this time. Await care team's input; from a medical standpoint she can be discharged.
[2022-09-23 11:23] VITALS: BP 122/81; PULSE 86; RESP 18; TEMP 36.6; O2SAT 100
--- NOTE | 2022-09-23 12:39 | PM.DS ---
DS: Providers Provider Date of Service: 09/23/22 Date of admission: 09/22/22 17:52 Date of discharge: 09/23/22 Primary care physician: Unknown Physician Consults: 09/22/22 17:36 Consult for Sitter Routine Reason for consultation: post partyum psychosi/SI DS: Diagnosis Discharge Diagnosis (1) Vaginal bleeding: Status: Acute (2) psychosis: Status: Acute DS: Summary Hospital Course Hospital Course: 27-year-old female on Adult psych who developed vaginal bleeding.? Patient is 2 and half months of her 5th child.? She had sitter present who stated there was blood on toilet paper and in toilet but could not qualify or quantify.? When further questioned, patient states this happened after her last child and they did no specific intervention other than observed.? At this time clinical presentation is stable however she is tachycardic.? Decision was made to admit to the medical service and consult [facility] Admitted to telemetry without further vaginal bleeding overnight. Case discussed with Dr. Jesus Ribeiro (OBGYN); negative and no further bleeding. Outpatient follow-up indicated This a.m. is a hemoglobin essentially unchanged from last night. At this point in time patient is medically clear to return to . Time Spent with Patient Time attestation: Total time spent providing and/or coordinating discharge services: Discharge coordination time: Greater than 30 minutes Quality: Safe Use of Opioids Does Pt have an Active Cancer Diagnosis on the Problem List?: No Quality: Stroke Does the patient have a stroke diagnosis?: No Physical Exam Vital Signs: Vital Signs: Last Vital Signs Temp 97.8 F 09/23/22 11:23 Pulse 86 09/23/22 11:23 Resp 18 09/23/22 11:23 BP 122/81 09/23/22 11:23 Pulse Ox 100 09/23/22 11:23 O2 Del Method 09/23/22 11:23 Const: Other: Awake alert oriented x3 no acute distress Resp: Other: Clear to auscultation bilaterally no rales rhonchi wheezes Cardio: Other: No S4; positive S1-S2; no S3 murmurs rubs gallops GI: Other: Soft nontender nondistended normoactive bowel sounds Extrem: Other: No edema bilaterally DS: Data Data Completed and Pending Labs on day of discharge: Laboratory Results - last 24 hr 09/22/22 09/23/22 19:53 07:43 WBC 9.4 RBC 4.26 Hgb 11.7 L Hct 36.1 L MCV 84.7 MCH 27.5 MCHC 32.4 RDW 12.8 Plt Count 311 MPV 10.1 Immature Gran % (Auto) 0.3 Neut % (Auto) 60.1 Lymph % (Auto) 30.8 Bartholomew % (Auto) 7.0 Eos % (Auto) 1.3 Baso % (Auto) 0.5 Lymph # (Auto) 2.9 Bartholomew # (Auto) 0.7 Eos # (Auto) 0.1 Baso # (Auto) 0.1 Abs Immat Gran (auto) 0.03 Absolute Neuts (auto) 5.6 Absolute Nucleated RBC 0.000 Nucleated RBC % (auto) 0.0 Blood Type O Positive Antibody Screen NEGATIVE Discharge Plan Discharge Disposition: Xfer Psychiatric Hosp Referrals: Physician,Unknown J [Primary Care Provider] - 1 Week Discharge Medications: No Action nifedipine 30 mg tablet extended release 24hr 1 tab PO DAILY melatonin 3 mg tablet 2 tab PO QPM hydroxyzine HCl 25 mg tablet 1 tab PO TID PRN (Reason: Anxiety) aripiprazole 5 mg tablet 1.5 tab PO DAILY Slynd 4 mg (28) tablet 1 tab PO DAILY Discharge Orders: Discharge Order (Routine); Ordered 09/23/22 Ordered By: Jewel Herr Forms: Patient Portal Discharge page
== END 2022-09-23 14:26 | DRG 532 ==
LOC: HO.IMC 09-23 12:42 → HO.PADLT16 09-23 13:44 → HO.IMC 09-23 14:24
PROVIDERS: Admitting Provider Internal Medicine; Visit Provider Hospitalist
DX: N93.9 Abnormal uterine and vaginal bleeding, unspecified (principal); F17.210 Nicotine dependence, cigarettes, uncomplicated; Z71.6 Tobacco abuse counseling; Z79.899 Other long term (current) drug therapy
CPT/HCPCS: 36415; 85025; 86850; 86900; 86901; 93005; 99219

== ENCOUNTER 2022-09-23 14:56 | Inpatient (IN) | payer OTHER, SELFPAY ==
--- NOTE | 2022-09-23 | ECG_ITS ---
Test Reason : tachycardia, hypertension, symptomatic Blood Pressure : / mmHG Vent. Rate : 118 BPM Atrial Rate : 118 BPM P-R Int : 180 ms QRS Dur : 080 ms QT Int : 298 ms P-R-T Axes : 065 058 037 degrees QTc Int : 417 ms Sinus tachycardia Nonspecific T wave abnormality Abnormal ECG When compared with ECG of 23-SEP-2022 00:05, T wave amplitude has decreased in Inferior leads Referred By: Lázaro Chin Electronically Signed By:MICHAEL ENGLAND MD
[2022-09-23 15:55] VITALS: BP 122/83; PULSE 90; RESP 18; TEMP 36.4; O2SAT 100
--- NOTE | 2022-09-23 17:42 | PC.NURSE ---
Patient declined flu vaccination stating she has already received.
[2022-09-23] MEDS: Acetaminophen 325 MG TABLET 650 MG PO (18:32)
--- NOTE | 2022-09-23 18:41 | PC.ADMIT ---
Patient was re-admitted to from [facility], where she had been transferred due to vaginal bleeding. Patient was admitted on a CV. Soon after arrival, patient requested and signed a 3 day notice. During initial evaluation, patient was pressured, disorganized, and admitted to visual hallucinations I had protestant from my mother. Patient was hyperverbal, sharing several details of past trauma, as well as multiple somatic concerns, including generalized pain, which she attributes to the trauma she experienced. She denies SI/HI. Patient stated immediately on arrival that she wanted discharge tomorrow to the care of a VERTICAL PUNCH OPERATOR- I can't take care of myself, I have no short term memory. Patient reminded that tomorrow will be Sunday, which she quickly accepted. Patient alert, oriented x3. Small-moderate amount blood noted on pad which patient offered for examination. Patient is familiar with the unit, arrived in [facility], showered soon after arrival. 1:[address] with patient at this time.
[2022-09-23 20:26] VITALS: BP 121/82; PULSE 81; RESP 18; TEMP 36.3; O2SAT 100
[2022-09-23 23:00] VITALS: BP 157/95; PULSE 137; RESP 20; TEMP 36.5; O2SAT 100
[2022-09-23] MEDS: QUEtiapine Fumarate 50 MG TABLET PO (23:14)
[2022-09-23] MEDS: Melatonin 3 MG TABLET 6 MG PO (23:14)
[2022-09-23] MEDS: Benztropine Mesylate 0.5 MG TABLET PO (23:14)
[2022-09-23] MEDS: hydrOXYzine HCL 25 MG TABLET PO (23:20)
[2022-09-23 23:25] VITALS: BP 172/99; PULSE 115; RESP 20; TEMP 36.3; O2SAT 99
[2022-09-24] MEDS: Acetaminophen 325 MG TABLET 650 MG PO ×2 (01:33→19:09)
[2022-09-24 01:44] VITALS: BP 138/81; PULSE 90; RESP 18; TEMP 36.4; O2SAT 100
--- NOTE | 2022-09-24 04:46 | PC.ADMIT ---
At approximately 2300, pt came to nurse's station c/o dizziness and headache. BP was 157/95, HR 137. Notified assessment nurse practitioner Giuseppe, who ordered EKG and hospitalist consult d/t pt coming up from medical floor today and having been on telemetry. Pt then vomited a small amount. Hospitalist assessment nurse practitioner Dev requested a recheck of pt's BP which was 172/99 w/ a HR of 115. EKG was negative other than sinus tachycardia. BP was rechecked at 0144 and it was found to be 138/81 with a HR of 90. Will continue to monitor.
[2022-09-24 09:25] VITALS: BP 126/72; PULSE 84; RESP 20; TEMP 36.7; O2SAT 100
[2022-09-24] MEDS: NIFEdipine ER 30 MG TAB.ER.24 PO (09:28)
[2022-09-24] MEDS: ARIPiprazole 15 MG TABLET PO (09:29)
[2022-09-24] MEDS: Benztropine Mesylate 0.5 MG TABLET PO ×2 (09:29→20:55)
[2022-09-24] MEDS: Nicotine 21 MG PATCH.TD24 TRANSDERMA (09:30)
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
[2022-09-24 11:00] LABS: MANUAL DIFF FLAG NO
[2022-09-24 11:02] LABS: Basophils Percent Auto 0.5 % (0-2); Eosinophils Absolute Auto 0.1 X10*3/uL (0.0-0.4); Eosinophils Percent Auto 1.1 % (0-4); Hematocrit 35.2 % (37.0-47.0); Hemoglobin 12.2 g/dl (12.0-16.0); Imm Gran Abs Auto 0.02 X10*3/uL (0.00-0.03); Imm Gran Pct Auto 0.2 % (0.0-0.4); Lymphocytes Absolute Auto 2.3 X10*3/uL (1.2-4.9); Lymphocytes Percent Auto 28.3 % (20-40); Mean Corpuscular HGB Conc 34.7 g/dl (31.0-35.0); Mean Corpuscular Hemoglobin 28.6 pg (27.0-33.0); Mean Corpuscular Volume 82.6 fL (80.0-98.0); Mean Platelet Volume 9.9 fL (9.4-12.3); Monocytes Absolute Auto 0.5 X10*3/uL (0.1-1.2); Monocytes Percent Auto 6.1 % (2-11); Neutrophils Absolute Auto 5.1 x10*3/uL (2.0-8.3); Neutrophils Percent Auto 63.8 % (45-73); Platelet Count 333 X10*3/uL (160-400); Red Blood Count 4.26 X10*6/uL (4.20-5.50); Red Cell Distribution Width 12.7 % (11.0-16.0); White Blood Count 8.1 X10*3/uL (4.8-10.8)
[2022-09-24 11:09] LABS: D Dimer High Sensitivity 165 NG/ML
[2022-09-24 11:22] LABS: Anion Gap 18 (12-20); Blood Urea Nitrogen 10 mg/dL (9-16); Calcium 9.6 mg/dL (8.4-10.2); Carbon Dioxide 20 mmol/L (22-29); Chloride 102 mmol/L (96-108); Estimated Glomerular Filt Rate > 60; Glucose Random 108 mg/dL (60-115); Potassium 4.4 mmol/L (3.3-5.1); Sodium 136 mmol/L (135-145)
--- NOTE | 2022-09-24 11:24 | PC.NURSE ---
In early AM, patient was wearing an adult brief in which she had been incontinent. Small- moderate amount bright red blood noted. Patient encouraged to use the bathroom, and given pads. On recheck, pad had small amount bright red blood (~ slightly larger than quarter sized.)
[2022-09-24 11:30] LABS: B Type Natriuretic Peptide < 10 pg/mL (<100)
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
[2022-09-24] MEDS: Nicotine Polacrilex 2 MG GUM 4 MG BUCCAL ×2 (15:17→23:44)
[2022-09-24 16:22] VITALS: BMI 29.7
[2022-09-24 16:43] LABS: Appearance Urine Clear; Color Urine Yellow; Glucose Urine UA Negative (Negative); Leukocyte Esterase Urine Negative (Negative); Nitrite Urine Negative (Negative); Specific Gravity - Urine <= 1.005 (1.005-1.025); UMIC TRIGGER UACC YES; Urine Blood Moderate (2+) (Negative); Urine Ketones Negative (Negative); Urine Protein Negative (Neg-Trace)
[2022-09-24 16:50] LABS: Bacteria Urine None Seen (None Seen); Hyaline Casts Urine 0-2 /LPF (0-2); RBC Urine 0-2 /HPF (0-2); Squamous Epithelial Cell Urine 0-2 /HPF (0-2); WBC Urine 0-5 /HPF (0-5)
[2022-09-24 18:00] VITALS: BP 127/75; PULSE 106; RESP 18; TEMP 36.8; O2SAT 98
[2022-09-24 18:33] LABS: Thyroid Stimulating Hormone 0.58 uIU/mL (0.32-4.0)
[2022-09-24] MEDS: Melatonin 3 MG TABLET 6 MG PO (20:54)
[2022-09-25] MEDS: Acetaminophen 325 MG TABLET 650 MG PO ×3 (01:52→21:29)
[2022-09-25] MEDS: traZODone HCL 50 MG TABLET PO ×2 (02:04→21:29)
[2022-09-25] MEDS: Nicotine Polacrilex 2 MG GUM 4 MG BUCCAL (04:42)
[2022-09-25 07:30] VITALS: BP 132/75; PULSE 90; TEMP 36.6; O2SAT 97
[2022-09-25] MEDS: Nicotine 21 MG PATCH.TD24 TRANSDERMA (07:49)
[2022-09-25] MEDS: ARIPiprazole 20 MG TABLET PO (07:52)
[2022-09-25] MEDS: NIFEdipine ER 30 MG TAB.ER.24 PO (07:52)
[2022-09-25] MEDS: Benztropine Mesylate 0.5 MG TABLET PO ×2 (07:55→21:28)
[2022-09-25] MEDS: hydrOXYzine HCL 25 MG TABLET PO (09:47)
[2022-09-25] MEDS: QUEtiapine Fumarate 50 MG TABLET PO (09:47)
--- NOTE | 2022-09-25 17:52 | P.PNPSI_ITS ---
Subjective Subjective Date of Service: 09/25/22 Reason For Visit: Psychosis Interim History: Discussed with team. Spoke with pt. She reports she slept 3-5 hours but thinks when i go home it will be better. Says her energy is okay. Says she is feeling calmer, focused, regulated. Denies depression. Pt still has some perseverative and paranoid thoughts, says her mom does latter-day against her. Discusses her suicide attempt by jumping out a window, states that her mother told her to be with your father and fly. Has more insight into her psychotic sx at admission, states she felt like the ceiling was caving in but now says this was a night terror. Says seroquel PRN is too strong. Willing to trial an increase in hydroxyzine to see if it helps with sleep. Denies akathesia, says she does dance and pace is med related, says it is just her and that she is goofy. Overall, appreciates the increse in abilify and says she is feeling much better, it got me to where i need to be so i can regulate this, only SE is dry mouth. Medication Compliance: Yes Side effects from medications: No Attending Groups: Yes Review of Systems Acute medical concerns: No Mental Status Exam Mental Status Exam Narrative: A&O. Overweight, casual attire, sitting up. Good eye contact, attentive. No Tics or Tremors. No abnormal involuntary movements. Calm cooperative, engaged. Non-pressured speech, spontaneous with regular rate and rhythm, normal volume and prosody. No prolonged speech latency or dysarthria. Mood is ?better,? affect is calmer. Denies SI/SIB/HI upon inquiry. Denies A/VH, some residual paranoid ideation. Thoughts are more focused. No known cognitive or memory impairment. Insight/ Judgment limited. Diagnostics Vital Signs (24Hr): Vital Signs - 24 hr 09/24/22 18:00 09/25/22 07:30 Temperature 98.3 F 98 F Pulse Rate 106 H 90 Respiratory Rate 18 Blood Pressure 127/75 132/75 Pulse Oximetry 98 97 Oxygen Delivery Method Room Air Room Air BMI result Body Mass Index 29.7 Labs Results: 09/27/22 09:06 09/24/22 10:55 Labs: Laboratory Results - last 48 hr 09/24/22 09/24/22 09/24/22 10:55 10:55 10:55 WBC 8.1 RBC 4.26 Hgb 12.2 Hct 35.2 L MCV 82.6 MCH 28.6 MCHC 34.7 RDW 12.7 Plt Count 333 MPV 9.9 Immature Gran % (Auto) 0.2 Neut % (Auto) 63.8 Lymph % (Auto) 28.3 [place] % (Auto) 6.1 Eos % (Auto) 1.1 Baso % (Auto) 0.5 Lymph # (Auto) 2.3 [place] # (Auto) 0.5 Eos # (Auto) 0.1 Baso # (Auto) 0.0 Abs Immat Gran (auto) 0.02 Absolute Neuts (auto) 5.1 Absolute Nucleated RBC 0.000 Nucleated RBC % (auto) 0.0 D-Dimer High Sensitivty 165 Sodium 136 Potassium 4.4 Chloride 102 Carbon Dioxide 20 L Anion Gap 18 BUN 10 Creatinine 0.83 Estim Creat Clear Calc TNP Estimated GFR > 60 Random Glucose 108 Calcium 9.6 D B-Natriuretic Peptide TSH 0.58 Urine Color Urine Appearance Urine pH Ur Specific [place] Urine Protein Urine Glucose (UA) Urine Ketones Urine Blood Urine Nitrite Ur Leukocyte Esterase Urine RBC Urine WBC Ur Squamous Epith Cells Urine Bacteria Hyaline Casts 09/24/22 09/24/22 10:55 16:30 WBC RBC Hgb Hct MCV MCH MCHC RDW Plt Count MPV Immature Gran % (Auto) Neut % (Auto) Lymph % (Auto) [place] % (Auto) Eos % (Auto) Baso % (Auto) Lymph # (Auto) [place] # (Auto) Eos # (Auto) Baso # (Auto) Abs Immat Gran (auto) Absolute Neuts (auto) Absolute Nucleated RBC Nucleated RBC % (auto) D-Dimer High Sensitivty Sodium Potassium Chloride Carbon Dioxide Anion Gap BUN Creatinine Estim Creat Clear Calc Estimated GFR Random Glucose Calcium B-Natriuretic Peptide < 10 TSH Urine Color Yellow Urine Appearance Clear Urine pH 6.0 Ur Specific [place] <= 1.005 Urine Protein Negative Urine Glucose (UA) Negative Urine Ketones Negative Urine Blood Moderate (2+) H Urine Nitrite Negative Ur Leukocyte Esterase Negative Urine RBC 0-2 Urine WBC 0-5 Ur Squamous Epith Cells 0-2 Urine Bacteria None Seen Hyaline Casts 0-2 Medications Medications Current Medications Acetaminophen (Acetaminophen 325 Mg Tablet) 650 mg PO Q6H PRN PRN Reason: Headache/Pain Mild Scale (1-3) Last Admin: 09/25/22 08:55 Dose: 650 mg Al Hydroxide/Mg Hydroxide (Magnesium Hydrox/Alum Hydrox 30 Ml Oral.Susp) 30 ml PO Q6H PRN PRN Reason: Heartburn/Nausea Aripiprazole (Aripiprazole 20 Mg Tablet) 20 mg PO DAILY [facility] Last Admin: 09/25/22 07:52 Dose: 20 mg Benztropine Mesylate (Benztropine Mesylate 0.5 Mg Tablet) 0.5 mg PO BID [facility] Last Admin: 09/25/22 07:55 Dose: 0.5 mg Hydroxyzine HCl (Hydroxyzine Hcl 25 Mg Tablet) 25 mg PO TID PRN PRN Reason: Anxiety Last Admin: 09/25/22 09:47 Dose: 25 mg Magnesium Hydroxide (Milk Of Magnesia 30 Ml Oral.Susp) 30 ml PO DAILY PRN PRN Reason: Constipation Melatonin (Melatonin 3 Mg Tablet) 6 mg PO DAILY@2100 [facility] Last Admin: 09/24/22 20:54 Dose: 6 mg Nicotine (Nicotine 21 Mg Patch.Td24) 21 mg TRANSDERMA DAILY [facility] Last Admin: 09/25/22 07:49 Dose: 21 mg Nicotine Polacrilex (Nicotine Polacrilex 2 Mg Gum) 4 mg BUCCAL Q2H PRN PRN Reason: Nicotine Cravings Last Admin: 09/25/22 04:42 Dose: 4 mg Nifedipine (Nifedipine Er 30 Mg Tab.Er.24) 30 mg PO DAILY [facility]; Protocol Last Admin: 09/25/22 07:52 Dose: 30 mg Non-Formulary Medication (Drospirenone (Contraceptive) [Slynd]) 1 tab PO DAILY [facility] Quetiapine Fumarate (Quetiapine Fumarate 50 Mg Tablet) 50 mg PO Q2H PRN PRN Reason: agitation Last Admin: 09/25/22 09:47 Dose: 50 mg Trazodone HCl (Trazodone Hcl 50 Mg Tablet) 50 mg PO BEDTIME PRN PRN Reason: Insomnia Last Admin: 09/25/22 02:04 Dose: 50 mg Allergies Allergies Allergy/AdvReac Type Severity Reaction Status Date / Time No Known Allergies Allergy Unverified 07/29/20 18:47 Assessment & Plan Assessment & Plan (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 Who carries a dx of schizoaffective disorder, bipolar type, PTSD. [place] [facility] [place], SI, and command AH. Pt is 3 months . Endorses hyposomnia, mood lability, flashbacks, nightmares, and activation. Having delusional thought process. Hx of [facility], recently discharged from [facility] on abilify 7.5 mg but does not think this dose is high enough, complains of s/s of akathesia. Plan: Pt willing to trial higher dose of abilify to target psychotic sx and mood lability, will increase to 10 mg daily and add cogentin 0.5 mg BID. 09/22: Increase abilify to 15 mg, transfer to [facility] [place] with plan to return to psych inpatient level of care for further med management and stability. 09/24: Pt admitted back to inpatient psych care. Will increase abilify from 15 mg daily to 20 mg daily, otherwise continue prior Tx plan. request for pastoral services passed on to clinical staff rn. 09/25: Will recheck CBC on 09/27, increase hydroxyzine to 50 mg TID PRN for anxiety, sleep Q15 min safety checks, CV Monitor response to medications. Monitor for safety in the milieu. Discharge on stabilization. Patient seen. Chart reviewed. Discussed with team. Obtain collateral contact info?as needed I spent minutes with the patient and/or on the patient floor today, greater than?50% of which was spent counseling/coordinating care. Patient educated on: medication risk/benefits and therapeutic strategies Reason for contiued inpatient stay Substantial Risk for: harm to self, rapid decompensation and med/psych decompensation
[2022-09-25 19:00] VITALS: BP 133/91; PULSE 100; RESP 16; TEMP 36.3; O2SAT 99
[2022-09-25] MEDS: Melatonin 3 MG TABLET 6 MG PO (21:28)
[2022-09-25] MEDS: hydrOXYzine HCL 50 MG TABLET PO (21:29)
[2022-09-26 06:00] VITALS: BP 118/77; PULSE 92; RESP 16; TEMP 36.3; O2SAT 99
[2022-09-26] MEDS: ARIPiprazole 20 MG TABLET PO (08:41)
[2022-09-26] MEDS: NIFEdipine ER 30 MG TAB.ER.24 PO (08:41)
[2022-09-26] MEDS: Benztropine Mesylate 0.5 MG TABLET PO ×2 (08:41→22:24)
[2022-09-26] MEDS: Nicotine 21 MG PATCH.TD24 TRANSDERMA (08:44)
[2022-09-26] MEDS: Acetaminophen 325 MG TABLET 650 MG PO ×2 (14:26→22:24)
[2022-09-26 18:00] VITALS: BP 124/84; PULSE 92; RESP 16; TEMP 36.4; O2SAT 100
--- NOTE | 2022-09-26 19:38 | HO.PSYCHPN ---
Subjective Subjective Date of Service: 09/26/22 Reason For Visit: Psychosis Interim History: Discussed with team. Spoke with pt. Says she feels better, slept the whole night, the increase in hydroxyzine helped, says she hasnt slept this much in a long time. She has more insight, says she is thinking clearer. She discusses psychosis. Asks for seroquel PRN to be discontinued. Says she is naturally hyper and hyperactive at baseline. Appetite is good. Mental Status Exam Mental Status Exam Narrative: A&O. Overweight, casual attire, good hygiene. Good eye contact, attentive. No Tics or Tremors. No abnormal involuntary movements. Calm, cooperative, engaged. Non-pressured speech, spontaneous with regular rate and rhythm, normal volume and prosody. No prolonged speech latency or dysarthria. Mood is ?better,? affect is appropriate. Denies SI/SIB/HI upon inquiry. Denies A/VH, denies paranoid delusional thought content. Thoughts are organized. No known cognitive or memory impairment. Insight/ Judgment improving. Diagnostics Vital Signs (24Hr): Vital Signs - 24 hr 09/26/22 06:00 Temperature 97.3 F Pulse Rate 92 Respiratory Rate 16 Blood Pressure 118/77 Pulse Oximetry 99 Oxygen Delivery Method Room Air BMI result Body Mass Index 29.7 Labs Results: 09/27/22 09:06 09/24/22 10:55 Medications Medications Current Medications Acetaminophen (Acetaminophen 325 Mg Tablet) 650 mg PO Q6H PRN PRN Reason: Headache/Pain Mild Scale (1-3) Last Admin: 09/26/22 14:26 Dose: 650 mg Al Hydroxide/Mg Hydroxide (Magnesium Hydrox/Alum Hydrox 30 Ml Oral.Susp) 30 ml PO Q6H PRN PRN Reason: Heartburn/Nausea Aripiprazole (Aripiprazole 20 Mg Tablet) 20 mg PO DAILY [facility] Last Admin: 09/26/22 08:41 Dose: 20 mg Benztropine Mesylate (Benztropine Mesylate 0.5 Mg Tablet) 0.5 mg PO BID [facility] Last Admin: 09/26/22 08:41 Dose: 0.5 mg Hydroxyzine HCl (Hydroxyzine Hcl 50 Mg Tablet) 50 mg PO TID PRN PRN Reason: Anxiety Last Admin: 09/25/22 21:29 Dose: 50 mg Magnesium Hydroxide (Milk Of Magnesia 30 Ml Oral.Susp) 30 ml PO DAILY PRN PRN Reason: Constipation Melatonin (Melatonin 3 Mg Tablet) 6 mg PO DAILY@2100 [facility] Last Admin: 09/25/22 21:28 Dose: 6 mg Nicotine (Nicotine 21 Mg Patch.Td24) 21 mg TRANSDERMA DAILY [facility] Last Admin: 09/26/22 08:44 Dose: 21 mg Nicotine Polacrilex (Nicotine Polacrilex 2 Mg Gum) 4 mg BUCCAL Q2H PRN PRN Reason: Nicotine Cravings Last Admin: 09/25/22 04:42 Dose: 4 mg Nifedipine (Nifedipine Er 30 Mg Tab.Er.24) 30 mg PO DAILY [facility]; Protocol Last Admin: 09/26/22 08:41 Dose: 30 mg Non-Formulary Medication (Drospirenone (Contraceptive) [Slynd]) 1 tab PO DAILY [facility] Quetiapine Fumarate (Quetiapine Fumarate 25 Mg Tablet) 25 mg PO BEDTIME PRN PRN Reason: Sleep Trazodone HCl (Trazodone Hcl 50 Mg Tablet) 50 mg PO BEDTIME PRN PRN Reason: Insomnia Last Admin: 09/25/22 21:29 Dose: 50 mg Allergies Allergies Allergy/AdvReac Type Severity Reaction Status Date / Time No Known Allergies Allergy Unverified 07/29/20 18:47 Assessment & Plan Assessment & Plan (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 Who carries a dx of schizoaffective disorder, bipolar type, PTSD. [place] [facility] [place] depression, SI, and command AH. Pt is 3 months . Endorses hyposomnia, mood lability, flashbacks, nightmares, and activation. Having delusional thought process. Hx of [facility], recently discharged from [facility] on abilify 7.5 mg but does not think this dose is high enough, complains of s/s of akathesia. Plan: Pt willing to trial higher dose of abilify to target psychotic sx and mood lability, will increase to 10 mg daily and add cogentin 0.5 mg BID. 09/22: Increase abilify to 15 mg, [place] [facility] [place] plan to return to psych inpatient level of care for further med management and stability. 09/24: Pt admitted back to inpatient psych care. Will increase abilify from 15 mg daily to 20 mg daily, otherwise continue prior Tx plan. request for pastoral services passed on to greenhouse staff. 09/25: Reviewed med admission. Will recheck CBC on 09/27, increase hydroxyzine to 50 mg TID PRN for anxiety, sleep 09/26: D/C PRN seroquel, pt not utilizing, sleep improved Q15 min safety checks, CV Monitor response to medications. Monitor for safety in the milieu. Discharge on stabilization. Patient seen. Chart reviewed. Discussed with team. Obtain collateral contact info?as needed I spent minutes with the patient and/or on the patient floor today, greater than?50% of which was spent counseling/coordinating care. Patient educated on: diagnosis, medication risk/benefits and therapeutic strategies Reason for contiued inpatient stay Substantial Risk for: rapid decompensation and med/psych decompensation
[2022-09-26] MEDS: hydrOXYzine HCL 50 MG TABLET PO (22:24)
[2022-09-26] MEDS: Melatonin 3 MG TABLET 6 MG PO (22:24)
[2022-09-26] MEDS: traZODone HCL 50 MG TABLET PO (22:24)
[2022-09-27 08:18] VITALS: BP 130/69; PULSE 98; RESP 18; TEMP 36.6; O2SAT 100
[2022-09-27] MEDS: ARIPiprazole 20 MG TABLET PO (08:20)
[2022-09-27] MEDS: NIFEdipine ER 30 MG TAB.ER.24 PO (08:20)
[2022-09-27] MEDS: Acetaminophen 325 MG TABLET 650 MG PO ×2 (08:20→14:37)
[2022-09-27] MEDS: Nicotine 21 MG PATCH.TD24 TRANSDERMA (08:21)
[2022-09-27] MEDS: Benztropine Mesylate 0.5 MG TABLET PO ×2 (08:21→21:10)
[2022-09-27 09:29] LABS: MANUAL DIFF FLAG NO
[2022-09-27 09:32] LABS: Basophils Percent Auto 0.5 % (0-2); Eosinophils Absolute Auto 0.1 X10*3/uL (0.0-0.4); Eosinophils Percent Auto 1.7 % (0-4); Hematocrit 36.3 % (37.0-47.0); Imm Gran Abs Auto 0.03 X10*3/uL (0.00-0.03); Imm Gran Pct Auto 0.4 % (0.0-0.4); Lymphocytes Absolute Auto 2.2 X10*3/uL (1.2-4.9); Lymphocytes Percent Auto 29.3 % (20-40); Mean Corpuscular HGB Conc 33.1 g/dl (31.0-35.0); Mean Corpuscular Volume 84.6 fL (80.0-98.0); Mean Platelet Volume 10.1 fL (9.4-12.3); Monocytes Absolute Auto 0.5 X10*3/uL (0.1-1.2); Monocytes Percent Auto 7.2 % (2-11); Neutrophils Absolute Auto 4.6 x10*3/uL (2.0-8.3); Neutrophils Percent Auto 60.9 % (45-73); Platelet Count 326 X10*3/uL (160-400); Red Blood Count 4.29 X10*6/uL (4.20-5.50); Red Cell Distribution Width 12.5 % (11.0-16.0); White Blood Count 7.5 X10*3/uL (4.8-10.8)
--- NOTE | 2022-09-27 17:54 | HO.PSYCHPN ---
Subjective Subjective Date of Service: 09/27/22 Reason For Visit: Psychosis Interim History: Discussed with team. Spoke with pt. She says she is back to my happy chippy self. She is sleeping well. Appetite is better, eating well. Still c/o dry mouth but says she can handle that. Says she feels safe. Denies negative thoughts, has been trying to process through and cope. Denies SI/SIB. Denies nightmares or flashbacks. Says her menstrual bleeding leveling out. Medication Compliance: Yes Side effects from medications: No Attending Groups: Yes Review of Systems Acute medical concerns: No Medical Review of Systems: unchanged Mental Status Exam Mental Status Exam Narrative: A&O. Overweight, casual attire, good hygiene. Good eye contact, attentive. No Tics or Tremors. No abnormal involuntary movements. Calm, cooperative, engaged. Non-pressured speech, spontaneous with regular rate and rhythm, normal volume and prosody. No prolonged speech latency or dysarthria. Mood is ?better,? affect is euthymic. Denies SI/SIB/HI upon inquiry. Denies A/VH or paranoid delusional thought content. Thoughts are goal oriented. No known cognitive or memory impairment. Insight/ Judgment fair. Diagnostics Vital Signs (24Hr): Vital Signs - 24 hr 09/26/22 18:00 09/27/22 08:18 Temperature 97.5 F 97.9 F Pulse Rate 92 98 Respiratory Rate 16 18 Blood Pressure 124/84 130/69 Pulse Oximetry 100 100 Oxygen Delivery Method Room Air BMI result Body Mass Index 29.7 Labs Results: 09/27/22 09:06 09/24/22 10:55 Labs: Laboratory Results - last 48 hr 09/27/22 09:06 WBC 7.5 RBC 4.29 Hgb 12.0 Hct 36.3 L MCV 84.6 MCH 28.0 MCHC 33.1 RDW 12.5 Plt Count 326 MPV 10.1 Immature Gran % (Auto) 0.4 Neut % (Auto) 60.9 Lymph % (Auto) 29.3 [place] % (Auto) 7.2 Eos % (Auto) 1.7 Baso % (Auto) 0.5 Lymph # (Auto) 2.2 [place] # (Auto) 0.5 Eos # (Auto) 0.1 Baso # (Auto) 0.0 Abs Immat Gran (auto) 0.03 Absolute Neuts (auto) 4.6 Absolute Nucleated RBC 0.000 Nucleated RBC % (auto) 0.0 Medications Medications Current Medications Acetaminophen (Acetaminophen 325 Mg Tablet) 650 mg PO Q6H PRN PRN Reason: Headache/Pain Mild Scale (1-3) Last Admin: 09/27/22 14:37 Dose: 650 mg Al Hydroxide/Mg Hydroxide (Magnesium Hydrox/Alum Hydrox 30 Ml Oral.Susp) 30 ml PO Q6H PRN PRN Reason: Heartburn/Nausea Aripiprazole (Aripiprazole 20 Mg Tablet) 20 mg PO DAILY [facility] Last Admin: 09/27/22 08:20 Dose: 20 mg Benztropine Mesylate (Benztropine Mesylate 0.5 Mg Tablet) 0.5 mg PO BID [facility] Last Admin: 09/27/22 08:21 Dose: 0.5 mg Hydroxyzine HCl (Hydroxyzine Hcl 50 Mg Tablet) 50 mg PO TID PRN PRN Reason: Anxiety Last Admin: 09/26/22 22:24 Dose: 50 mg Magnesium Hydroxide (Milk Of Magnesia 30 Ml Oral.Susp) 30 ml PO DAILY PRN PRN Reason: Constipation Melatonin (Melatonin 3 Mg Tablet) 6 mg PO DAILY@2100 [facility] Last Admin: 09/26/22 22:24 Dose: 6 mg Nicotine (Nicotine 21 Mg Patch.Td24) 21 mg TRANSDERMA DAILY [facility] Last Admin: 09/27/22 08:21 Dose: 21 mg Nicotine Polacrilex (Nicotine Polacrilex 2 Mg Gum) 4 mg BUCCAL Q2H PRN PRN Reason: Nicotine Cravings Last Admin: 09/25/22 04:42 Dose: 4 mg Nifedipine (Nifedipine Er 30 Mg Tab.Er.24) 30 mg PO DAILY [facility]; Protocol Last Admin: 09/27/22 08:20 Dose: 30 mg Non-Formulary Medication (Drospirenone (Contraceptive) [Slynd]) 1 tab PO DAILY [facility] Trazodone HCl (Trazodone Hcl 50 Mg Tablet) 50 mg PO BEDTIME PRN PRN Reason: Insomnia Last Admin: 09/26/22 22:24 Dose: 50 mg Allergies Allergies Allergy/AdvReac Type Severity Reaction Status Date / Time No Known Allergies Allergy Unverified 07/29/20 18:47 Assessment & Plan Assessment & Plan (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 Who carries a dx of schizoaffective disorder, bipolar type, PTSD. She presented to [facility] [place] [facility] due to depression, SI, and command AH. Pt is 3 months . Endorses hyposomnia, mood lability, flashbacks, nightmares, and activation. Having delusional thought process. Hx of [facility], recently discharged from [facility] on abilify 7.5 mg but does not think this dose is high enough, complains of s/s of akathesia. Plan: Pt willing to trial higher dose of abilify to target psychotic sx and mood lability, will increase to 10 mg daily and add cogentin 0.5 mg BID. 09/22: Increase abilify to 15 mg, transfer [place] [facility] [place] with plan to return to psych inpatient level of care for further med management and stability. 09/24: Pt admitted back to inpatient psych care. Will increase abilify from 15 mg daily to 20 mg daily, otherwise continue prior Tx plan. request for pastoral services passed on to administrative staff supervisor. 09/25: Reviewed med admission. Will recheck CBC on 09/27, increase hydroxyzine to 50 mg TID PRN for anxiety, sleep 09/26: D/C PRN seroquel, pt not utilizing, sleep improved 09/27: No changes, reviewed CBC Q15 min safety checks, CV Monitor response to medications. Monitor for safety in the milieu. Discharge on stabilization. Patient seen. Chart reviewed. Discussed with team. Obtain collateral contact info?as needed I spent minutes with the patient and/or on the patient floor today, greater than?50% of which was spent counseling/coordinating care. Patient educated on: diagnosis, medication risk/benefits and therapeutic strategies Reason for contiued inpatient stay Substantial Risk for: rapid decompensation and med/psych decompensation
--- NOTE | 2022-09-27 18:38 | P.DS_ITS ---
DS: Providers Provider Date of admission: 09/23/22 14:56 Primary care physician: Unknown Physician Consults: 09/23/22 23:08 Consult to Hospitalist Routine Consulting Provider: Hospitalist Reason For Exam: HTN, tachy, symptomatic in woman 5 wks post- DS: Diagnosis Discharge Diagnosis (1) psychosis: Status: Acute (2) Vaginal bleeding: Status: Acute (3) Post traumatic stress disorder (PTSD): Status: Acute (4) hypertension: Status: Acute DS: Medications Discharge Medications Home Medications: Home Medications Medication Instructions Recorded Confirmed aripiprazole 5 mg tablet 1.5 tab PO DAILY 09/20/22 09/23/22 drospirenone (contraceptive) 4 mg 1 tab PO DAILY 09/20/22 09/23/22 (28) tablet (Slynd) hydroxyzine HCl 25 mg tablet 1 tab PO TID PRN Anxiety 09/20/22 09/23/22 melatonin 3 mg tablet 2 tab PO QPM 09/20/22 09/23/22 nifedipine 30 mg tablet,extended 1 tab PO DAILY 09/20/22 09/23/22 release 24 hr Mental Status Exam Mental Status Exam Narrative: A&O. Overweight, casual attire, laying down in bed. Good eye contact, attentive. No Tics or Tremors. No abnormal involuntary movements. Psychomotor agitation, pacing, cooperative, engaged. Non-pressured speech, spontaneous with regular rate and rhythm, normal volume and prosody. No prolonged speech latency or dysarthria. Mood is ?better,? affect is anxious. Denies SI/SIB/HI upon inquiry. Endorses command A/VH, paranoid delusional thought content. Thoughts are tangential. No known cognitive or memory impairment. Insight/ Judgment limited. Data Data Completed and Pending Completed studies during hospitalization [Text1]: 09/24/22 09/24/22 09/24/22 10:55 10:55 10:55 WBC 8.1 RBC 4.26 Hgb 12.2 Hct 35.2 L MCV 82.6 MCH 28.6 MCHC 34.7 RDW 12.7 Plt Count 333 MPV 9.9 Immature Gran % (Auto) 0.2 Neut % (Auto) 63.8 Lymph % (Auto) 28.3 [place] % (Auto) 6.1 Eos % (Auto) 1.1 Baso % (Auto) 0.5 Lymph # (Auto) 2.3 [place] # (Auto) 0.5 Eos # (Auto) 0.1 Baso # (Auto) 0.0 Abs Immat Gran (auto) 0.02 Absolute Neuts (auto) 5.1 Absolute Nucleated RBC 0.000 Nucleated RBC % (auto) 0.0 D-Dimer High Sensitivty 165 Sodium 136 Potassium 4.4 Chloride 102 Carbon Dioxide 20 L Anion Gap 18 BUN 10 Creatinine 0.83 Estim Creat Clear Calc TNP Estimated GFR > 60 Random Glucose 108 Calcium 9.6 D B-Natriuretic Peptide TSH 0.58 Urine Color Urine Appearance Urine pH Ur Specific [place] Urine Protein Urine Glucose (UA) Urine Ketones Urine Blood Urine Nitrite Ur Leukocyte Esterase Urine RBC Urine WBC Ur Squamous Epith Cells Urine Bacteria Hyaline Casts 09/24/22 09/24/22 09/27/22 10:55 16:30 09:06 WBC 7.5 RBC 4.29 Hgb 12.0 Hct 36.3 L MCV 84.6 MCH 28.0 MCHC 33.1 RDW 12.5 Plt Count 326 MPV 10.1 Immature Gran % (Auto) 0.4 Neut % (Auto) 60.9 Lymph % (Auto) 29.3 [place] % (Auto) 7.2 Eos % (Auto) 1.7 Baso % (Auto) 0.5 Lymph # (Auto) 2.2 [place] # (Auto) 0.5 Eos # (Auto) 0.1 Baso # (Auto) 0.0 Abs Immat Gran (auto) 0.03 Absolute Neuts (auto) 4.6 Absolute Nucleated RBC 0.000 Nucleated RBC % (auto) 0.0 D-Dimer High Sensitivty Sodium Potassium Chloride Carbon Dioxide Anion Gap BUN Creatinine Estim Creat Clear Calc Estimated GFR Random Glucose Calcium B-Natriuretic Peptide < 10 TSH Urine Color Yellow Urine Appearance Clear Urine pH 6.0 Ur Specific [place] <= 1.005 Urine Protein Negative Urine Glucose (UA) Negative Urine Ketones Negative Urine Blood Moderate (2+) H Urine Nitrite Negative Ur Leukocyte Esterase Negative Urine RBC 0-2 Urine WBC 0-5 Ur Squamous Epith Cells 0-2 Urine Bacteria None Seen Hyaline Casts 0-2 DS: Summary Time Spent with Patient Time attestation: Total time spent providing and/or coordinating discharge services: Discharge Plan Discharge Referrals: Ling Page NP [Nurse Practitioner] - 1 Week Physician,Unknown J [Primary Care Provider] - 1 Week Discharge Medications: No Action nifedipine 30 mg tablet extended release 24hr 1 tab PO DAILY melatonin 3 mg tablet 2 tab PO QPM hydroxyzine HCl 25 mg tablet 1 tab PO TID PRN (Reason: Anxiety) aripiprazole 5 mg tablet 1.5 tab PO DAILY Slynd 4 mg (28) tablet 1 tab PO DAILY
[2022-09-27] MEDS: traZODone HCL 50 MG TABLET PO (21:10)
[2022-09-27] MEDS: Melatonin 3 MG TABLET 6 MG PO (21:10)
[2022-09-27] MEDS: hydrOXYzine HCL 50 MG TABLET PO (21:10)
[2022-09-27] MEDS: Throat Lozenge, Medicated LOZENGE 1 LOZENGE MUCOUS MEM (21:10)
[2022-09-27 21:16] VITALS: BP 112/71; PULSE 82; RESP 16; TEMP 36.7; O2SAT 98
[2022-09-28 09:15] VITALS: BP 127/74; PULSE 94; RESP 18; TEMP 36.6; O2SAT 100
[2022-09-28] MEDS: ARIPiprazole 20 MG TABLET PO (09:28)
[2022-09-28] MEDS: NIFEdipine ER 30 MG TAB.ER.24 PO (09:28)
[2022-09-28] MEDS: Nicotine 21 MG PATCH.TD24 TRANSDERMA (09:29)
[2022-09-28] MEDS: Benztropine Mesylate 0.5 MG TABLET PO ×2 (09:29→21:26)
[2022-09-28] MEDS: Acetaminophen 325 MG TABLET 650 MG PO (10:42)
[2022-09-28] MEDS: Ibuprofen 400 MG TABLET PO ×2 (16:43→21:20)
--- NOTE | 2022-09-28 17:22 | P.PNPSI_ITS ---
Subjective Subjective Date of Service: 09/28/22 Reason For Visit: Psychosis Interim History: Discussed with team. Spoke with pt. Says she is feeling good, excited to see her kids. Likes her meds, says she is getting way more sleep, has long hx of insomnia since childhood. Wants PT but will talk to her PCP about a referral. Feels safe. Denies SI/SIB. Denies delusional thought content. Medication Compliance: Yes Side effects from medications: No Attending Groups: Yes Review of Systems Acute medical concerns: No Medical Review of Systems: unchanged Mental Status Exam Mental Status Exam Narrative: A&O. Overweight, casual attire, good hygiene. Good eye contact, attentive. No Tics or Tremors. No abnormal involuntary movements. Calm, cooperative, engaged. Non-pressured speech, spontaneous with regular rate and rhythm, normal volume and prosody. No prolonged speech latency or dysarthria. Mood is ?better,? affect is euthymic. Denies SI/SIB/HI upon inquiry. Denies A/VH or paranoid delusional thought content. Thoughts are goal oriented. No known cognitive or memory impairment. Insight/ Judgment fair. Diagnostics Vital Signs (24Hr): Vital Signs - 24 hr 09/27/22 21:16 09/28/22 09:15 Temperature 98.0 F 97.9 F Pulse Rate 82 94 Respiratory Rate 16 18 Blood Pressure 112/71 127/74 Pulse Oximetry 98 100 Oxygen Delivery Method Room Air Room Air BMI result Body Mass Index 29.7 Labs Results: 09/27/22 09:06 09/24/22 10:55 Labs: Laboratory Results - last 48 hr 09/27/22 09:06 WBC 7.5 RBC 4.29 Hgb 12.0 Hct 36.3 L MCV 84.6 MCH 28.0 MCHC 33.1 RDW 12.5 Plt Count 326 MPV 10.1 Immature Gran % (Auto) 0.4 Neut % (Auto) 60.9 Lymph % (Auto) 29.3 [place] % (Auto) 7.2 Eos % (Auto) 1.7 Baso % (Auto) 0.5 Lymph # (Auto) 2.2 [place] # (Auto) 0.5 Eos # (Auto) 0.1 Baso # (Auto) 0.0 Abs Immat Gran (auto) 0.03 Absolute Neuts (auto) 4.6 Absolute Nucleated RBC 0.000 Nucleated RBC % (auto) 0.0 Medications Medications Current Medications Acetaminophen (Acetaminophen 325 Mg Tablet) 650 mg PO Q6H PRN PRN Reason: Headache/Pain Mild Scale (1-3) Last Admin: 09/28/22 10:42 Dose: 650 mg Al Hydroxide/Mg Hydroxide (Magnesium Hydrox/Alum Hydrox 30 Ml Oral.Susp) 30 ml PO Q6H PRN PRN Reason: Heartburn/Nausea Aripiprazole (Aripiprazole 20 Mg Tablet) 20 mg PO DAILY [facility] Last Admin: 09/28/22 09:28 Dose: 20 mg Benzocaine (Throat Lozenge, Medicated Lozenge) 1 lozenge MUCOUS MEM Q2H PRN PRN Reason: Dry Mouth Last Admin: 09/27/22 21:10 Dose: 1 lozenge Benztropine Mesylate (Benztropine Mesylate 0.5 Mg Tablet) 0.5 mg PO BID [facility] Last Admin: 09/28/22 09:29 Dose: 0.5 mg Hydroxyzine HCl (Hydroxyzine Hcl 50 Mg Tablet) 50 mg PO TID PRN PRN Reason: Anxiety Last Admin: 09/27/22 21:10 Dose: 50 mg Ibuprofen (Ibuprofen 400 Mg Tablet) 400 mg PO Q6H PRN PRN Reason: Pain, Moderate (Pain Scale 4-6 Last Admin: 09/28/22 16:43 Dose: 400 mg Magnesium Hydroxide (Milk Of Magnesia 30 Ml Oral.Susp) 30 ml PO DAILY PRN PRN Reason: Constipation Melatonin (Melatonin 3 Mg Tablet) 6 mg PO DAILY@2100 [facility] Last Admin: 09/27/22 21:10 Dose: 6 mg Nicotine (Nicotine 21 Mg Patch.Td24) 21 mg TRANSDERMA DAILY [facility] Last Admin: 09/28/22 09:29 Dose: 21 mg Nicotine Polacrilex (Nicotine Polacrilex 2 Mg Gum) 4 mg BUCCAL Q2H PRN PRN Reason: Nicotine Cravings Last Admin: 09/25/22 04:42 Dose: 4 mg Nifedipine (Nifedipine Er 30 Mg Tab.Er.24) 30 mg PO DAILY [facility]; Protocol Last Admin: 09/28/22 09:28 Dose: 30 mg Non-Formulary Medication (Drospirenone (Contraceptive) [Slynd]) 1 tab PO DAILY [facility] Trazodone HCl (Trazodone Hcl 50 Mg Tablet) 50 mg PO BEDTIME PRN PRN Reason: Insomnia Last Admin: 09/27/22 21:10 Dose: 50 mg Allergies Allergies Allergy/AdvReac Type Severity Reaction Status Date / Time No Known Allergies Allergy Unverified 07/29/20 18:47 Assessment & Plan Assessment & Plan (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 Who carries a dx of schizoaffective disorder, bipolar type, PTSD. She presented to [facility] [place] [place] [facility] due to depression, SI, and command AH. Pt is 3 months . Endorses hyposomnia, mood lability, flashbacks, nightmares, and activation. Having delusional thought process. Hx of [facility], recently discharged from [facility] [place] on abilify 7.5 mg but does not think this dose is high enough, complains of s/s of akathesia. Plan: Pt willing to trial higher dose of abilify to target psychotic sx and mood lability, will increase to 10 mg daily and add cogentin 0.5 mg BID. 09/22: Increase abilify to 15 mg, transfer to [facility] [place] with plan to return to psych inpatient level of care for further med management and stability. 09/24: Pt admitted back to inpatient psych care. Will increase abilify from 15 mg daily to 20 mg daily, otherwise continue prior Tx plan. request for pastoral services passed on to direct support staff. 09/25: Reviewed med admission. Will recheck CBC on 09/27, increase hydroxyzine to 50 mg TID PRN for anxiety, sleep 09/26: D/C PRN seroquel, pt not utilizing, sleep improved 09/27: No changes, reviewed CBC 09/28: Pt feels safe to discharge Q15 min safety checks, CV Monitor response to medications. Monitor for safety in the milieu. Discharge on stabilization. Patient seen. Chart reviewed. Discussed with team. Obtain collateral contact info?as needed I spent minutes with the patient and/or on the patient floor today, greater than?50% of which was spent counseling/coordinating care. Patient educated on: diagnosis, medication risk/benefits and therapeutic strategies Reason for contiued inpatient stay Substantial Risk for: stable for discharge
[2022-09-28 21:20] VITALS: BP 133/75; PULSE 98; RESP 18; TEMP 36.3; O2SAT 100
[2022-09-28] MEDS: Throat Lozenge, Medicated LOZENGE 1 LOZENGE MUCOUS MEM (21:20)
[2022-09-28] MEDS: Melatonin 3 MG TABLET 6 MG PO ×2 (21:20→21:26)
[2022-09-28] MEDS: hydrOXYzine HCL 50 MG TABLET PO (21:26)
--- NOTE | 2022-09-29 02:06 | PM.PSYDC ---
DS: Providers Provider Date of Service: 09/29/22 Date of admission: 09/23/22 14:56 Date of discharge: 09/29/22 Primary care physician: Unknown Physician Admitting clinician: Charlotte Jensen Attending physician on admission: Jose Norris Consults: 09/23/22 23:08 Consult to Hospitalist Routine Consulting Provider: Hospitalist Reason For Exam: HTN, tachy, symptomatic in woman 5 wks post- Attending physician on discharge: Jose Norris Discharging clinician: Charlotte Jensen DS: Diagnosis Discharge Diagnosis (1) psychosis: Status: Acute (2) Vaginal bleeding: Status: Acute (3) Post traumatic stress disorder (PTSD): Status: Acute (4) hypertension: Status: Acute DS: Medications Discharge Medications Home Medications: Home Medications Medication Instructions Recorded Confirmed aripiprazole 5 mg tablet 1.5 tab PO DAILY 09/20/22 09/23/22 drospirenone (contraceptive) 4 mg 1 tab PO DAILY 09/20/22 09/23/22 (28) tablet (Slynd) hydroxyzine HCl 25 mg tablet 1 tab PO TID PRN Anxiety 09/20/22 09/23/22 melatonin 3 mg tablet 2 tab PO QPM 09/20/22 09/23/22 nifedipine 30 mg tablet,extended 1 tab PO DAILY 09/20/22 09/23/22 release 24 hr Mental Status Exam Mental Status Exam Narrative: A&O. Overweight, casual attire, good hygiene. Good eye contact, attentive. No Tics or Tremors. No abnormal involuntary movements. Calm, cooperative, engaged. Non-pressured speech, spontaneous with regular rate and rhythm, normal volume and prosody. No prolonged speech latency or dysarthria. Mood is ?better,? affect is euthymic. Denies SI/SIB/HI upon inquiry. Denies A/VH or paranoid delusional thought content. Thoughts are goal oriented. No known cognitive or memory impairment. Insight/ Judgment fair. Data Data Completed and Pending Completed studies during hospitalization [Text1]: 09/24/22 09/24/22 09/24/22 10:55 10:55 10:55 WBC 8.1 RBC 4.26 Hgb 12.2 Hct 35.2 L MCV 82.6 MCH 28.6 MCHC 34.7 RDW 12.7 Plt Count 333 MPV 9.9 Immature Gran % (Auto) 0.2 Neut % (Auto) 63.8 Lymph % (Auto) 28.3 [place] % (Auto) 6.1 Eos % (Auto) 1.1 Baso % (Auto) 0.5 Lymph # (Auto) 2.3 [place] # (Auto) 0.5 Eos # (Auto) 0.1 Baso # (Auto) 0.0 Abs Immat Gran (auto) 0.02 Absolute Neuts (auto) 5.1 Absolute Nucleated RBC 0.000 Nucleated RBC % (auto) 0.0 D-Dimer High Sensitivty 165 Sodium 136 Potassium 4.4 Chloride 102 Carbon Dioxide 20 L Anion Gap 18 BUN 10 Creatinine 0.83 Estim Creat Clear Calc TNP Estimated GFR > 60 Random Glucose 108 Calcium 9.6 D B-Natriuretic Peptide TSH 0.58 Urine Color Urine Appearance Urine pH Ur Specific [place] Urine Protein Urine Glucose (UA) Urine Ketones Urine Blood Urine Nitrite Ur Leukocyte Esterase Urine RBC Urine WBC Ur Squamous Epith Cells Urine Bacteria Hyaline Casts 09/24/22 09/24/22 09/27/22 10:55 16:30 09:06 WBC 7.5 RBC 4.29 Hgb 12.0 Hct 36.3 L MCV 84.6 MCH 28.0 MCHC 33.1 RDW 12.5 Plt Count 326 MPV 10.1 Immature Gran % (Auto) 0.4 Neut % (Auto) 60.9 Lymph % (Auto) 29.3 [place] % (Auto) 7.2 Eos % (Auto) 1.7 Baso % (Auto) 0.5 Lymph # (Auto) 2.2 [place] # (Auto) 0.5 Eos # (Auto) 0.1 Baso # (Auto) 0.0 Abs Immat Gran (auto) 0.03 Absolute Neuts (auto) 4.6 Absolute Nucleated RBC 0.000 Nucleated RBC % (auto) 0.0 D-Dimer High Sensitivty Sodium Potassium Chloride Carbon Dioxide Anion Gap BUN Creatinine Estim Creat Clear Calc Estimated GFR Random Glucose Calcium B-Natriuretic Peptide < 10 TSH Urine Color Yellow Urine Appearance Clear Urine pH 6.0 Ur Specific [place] <= 1.005 Urine Protein Negative Urine Glucose (UA) Negative Urine Ketones Negative Urine Blood Moderate (2+) H Urine Nitrite Negative Ur Leukocyte Esterase Negative Urine RBC 0-2 Urine WBC 0-5 Ur Squamous Epith Cells 0-2 Urine Bacteria None Seen Hyaline Casts 0-2 DS: Summary Hospital Course Hospital Course: Selwyn is a 27 y.o. Who carries a dx of schizoaffective disorder, bipolar type, PTSD. She presented to [facility] [place] [place] [facility] due to depression, SI, and command AH. Pt is 3 months . Endorses hyposomnia, mood lability, flashbacks, nightmares, and activation. Having delusional thought process. Hx of [facility], recently discharged from [facility] on abilify 7.5 mg but does not think this dose is high enough, complains of s/s of akathesia. Plan: Pt willing to trial higher dose of abilify to target psychotic sx and mood lability, will increase to 10 mg daily and add cogentin 0.5 mg BID. 09/22: Increase abilify to 15 mg, transfer to [facility] [place] with plan to return to psych inpatient level of care for further med management and stability. 09/24: Pt admitted back to inpatient psych care. Will increase abilify from 15 mg daily to 20 mg daily, otherwise continue prior Tx plan. request for pastoral services passed on to executive staff assistant. 09/25: Reviewed med admission. Will recheck CBC on 09/27, increase hydroxyzine to 50 mg TID PRN for anxiety, sleep 09/26: D/C PRN seroquel, pt not utilizing, sleep improved 09/27: No changes, reviewed CBC 09/28: Pt feels safe to discharge Q15 min safety checks, CV Monitor response to medications. Monitor for safety in the milieu. Discharge on stabilization. Patient seen. Chart reviewed. Discussed with team. Obtain collateral contact info?as needed Time spent discussing smoking cessation with patient: 3 to 10 minutes Status at Discharge Functional status at discharge: independent ambulation Overall status at discharge: patient is back to baseline Time Spent with Patient Time attestation: Total time spent providing and/or coordinating discharge services: Time spent: Less than 30 minutes Discharge Plan Discharge Anticipated Discharge Date/Time: 09/29/22 02:08 Patient Disposition: Home, Self-Care Discharge Diagnosis: psychosis Referrals: Brianna Hernandez (Therapy) [Other] - 10/02/22 11:30 am (IN OFFICE APPOINTMENT) Vinita Jimenez (Psychiatry) [Other] - 10/03/22 11:00 am (IN OFFICE APPOINTMENT) Ling Page, WILLIAM [Nurse Practitioner] - 1 Week Discharge Medications: New benztropine 0.5 mg Tablet 0.5 mg PO BID Qty: 60 0RF trazodone 50 mg Tablet 50 mg PO BEDTIME PRN (Reason: Insomnia) Qty: 30 0RF nicotine (polacrilex) 2 mg Gum 4 mg buccal Q2H PRN (Reason: Nicotine Cravings) Qty: 40 0RF hydroxyzine HCl 50 mg Tablet 50 mg PO TID PRN (Reason: Anxiety) Qty: 90 0RF nicotine 21 mg/24 hr Patch 24 Hour 21 mg transdermal DAILY Qty: 14 0RF aripiprazole [Abilify] 20 mg Tablet 20 mg PO DAILY Qty: 30 0RF Continued nifedipine 30 mg tablet extended release 24hr 1 tab PO DAILY melatonin 3 mg tablet 2 tab PO QPM Slynd 4 mg (28) tablet 1 tab PO DAILY Discontinued hydroxyzine HCl 25 mg tablet 1 tab PO TID PRN (Reason: Anxiety) aripiprazole 5 mg tablet 1.5 tab PO DAILY Discharge Orders: Discharge Order (Routine); Ordered 09/29/22 Ordered By: Charlotte Jensen Diet: Advance to usual diet Activity on Discharge: As tolerated Stand Alone Forms: Patient Portal Discharge page Care Plan Goals: Continue psychiatric medications as prescribed and follow up with outpatient referrals and PCP. Health Concerns: Smoking Cessation PTSD Plan of Treatment: Attend follow up appointments with OP psych services and PCP Patient will continue on psychotropic medication regimen for mood stability Take medications as directed A one month supply of medication has been sent to your pharmacy Crisis Team if needed [phone] Call and or return if needed Assessment: Risk assessment at time of discharge:? Patient was interviewed prior to discharge and found to be fully oriented and without any SI or HI. Patient has insight and demonstrates good judgment in terms of wanting to pursue treatment. Patient is not in imminent risk of harm to self or others and has a safety plan that includes presenting to the closest ER or calling 911 if feeling unsafe.? Patient has been observed closely by nursing and unit staff throughout admission; patient has not engaged in any behaviors that suggest dangerousness to self or others and has demonstrated appropriate behaviors and impulse control.
[2022-09-29] MEDS: hydrOXYzine HCL 50 MG TABLET PO (05:59)
[2022-09-29] MEDS: Acetaminophen 325 MG TABLET 650 MG PO (08:13)
[2022-09-29 08:20] VITALS: BP 117/69; PULSE 83; RESP 20; TEMP 36.7; O2SAT 99
[2022-09-29] MEDS: NIFEdipine ER 30 MG TAB.ER.24 PO (08:25)
[2022-09-29] MEDS: Benztropine Mesylate 0.5 MG TABLET PO (08:25)
[2022-09-29] MEDS: Nicotine 21 MG PATCH.TD24 TRANSDERMA (08:25)
[2022-09-29] MEDS: ARIPiprazole 20 MG TABLET PO (08:25)
--- NOTE | 2022-09-29 12:05 | PC.NURSE ---
Patient alert, oriented x3. Affect bright, patient very anxious to return home to see her children. Patient denies SI/HI, denies AH/VH. Reviewed discharge instructions with patient, patient verbalized understanding of instructions. No concerns reported.
== END 2022-09-29 11:05 | disposition home or self-care (01) | DRG 757 ==
PROVIDERS: Physician Assistant; Admitting Provider Psychiatry & Neurology Psychiatry; Visit Provider Registered Nurse
DX: F53.1 Puerperal psychosis (principal); F17.210 Nicotine dependence, cigarettes, uncomplicated; F41.9 Anxiety disorder, unspecified; F43.10 Post-traumatic stress disorder, unspecified; N93.9 Abnormal uterine and vaginal bleeding, unspecified; O16.5 Unspecified maternal hypertension, complicating the puerperium; Z71.6 Tobacco abuse counseling; Z79.899 Other long term (current) drug therapy
CPT/HCPCS: 36415; 80048; 81001; 83880; 84443; 85025; 85379; 93005

== ENCOUNTER 2022-10-04 15:35 | Emergency (ER) | payer OTHER, SELFPAY ==
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
--- NOTE | ~2022-10-04 | XR_ITS ---
EXAMINATION: XR SHOULDER, RIGHT CLINICAL INFORMATION: Right shoulder pain. COMPARISON: None TECHNIQUE: AP external rotation, Grashey, scapular Y, and axillary views of the right shoulder. FINDINGS: The bones and soft tissues are normal. No fracture. Glenohumeral and acromioclavicular alignment is anatomic with normal joint space. No abnormal soft tissue calcifications. XR/XR shoulder RT min 2V IMPRESSION: Unremarkable right shoulder.
[2022-10-04 15:40] VITALS: BP 127/89; PULSE 71; RESP 20; TEMP 36.3; O2SAT 100; BMI 30.9
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
--- NOTE | 2022-10-04 16:28 | ECG_ITS ---
Test Reason : Right shoulder pain Blood Pressure : / mmHG Vent. Rate : 063 BPM Atrial Rate : 063 BPM P-R Int : 172 ms QRS Dur : 088 ms QT Int : 402 ms P-R-T Axes : 046 066 025 degrees QTc Int : 411 ms Normal sinus rhythm with sinus arrhythmia Normal ECG When compared with ECG of 23-SEP-2022 23:56, Vent. rate has decreased BY 55 BPM Referred By: Devi Barros Electronically Signed By:MICHAEL ENGLAND MD
[2022-10-04] MEDS: Ibuprofen 800 MG TABLET PO (16:50)
[2022-10-04] MEDS: Lidocaine HCl 1 % MPF 2 ML VIAL INFILTRATI (18:04)
[2022-10-04] MEDS: Ketorolac Tromethamine 30 MG/ML VIAL IM (18:38)
== END 2022-10-04 18:57 | disposition home or self-care (01) ==
PROVIDERS: Emergency Provider Student in an Organized Health Care Education/Training Program; PCP Nurse Practitioner Family
DX: L02.512 Cutaneous abscess of left hand (principal); L03.012 Cellulitis of left finger; M79.602 Pain in left arm; R07.89 Other chest pain; Z79.899 Other long term (current) drug therapy
CPT/HCPCS: 10060; 73030; 73110; 73120; 73130; 93005; 96372; 99283; 99284; J1885

== ENCOUNTER 2022-10-16 14:07 | Outpatient (REF) | payer OTHER, SELFPAY ==
--- NOTE | ~2022-10-16 | XR_ITS ---
EXAMINATION: XR HAND, RIGHT CLINICAL INFORMATION: Pain right hand COMPARISON: Right hand 10/04/2022 TECHNIQUE: PA, lateral, and oblique views of the right hand. FINDINGS: There is a boxer's fracture distal fifth metacarpal with callus formation. The fracture line is still visualized extending to MCP joint. No soft tissue abnormality seen. XR/XR hand RT min 3V IMPRESSION: Boxer's fracture distal fifth metacarpal with callus formation. The fracture line is still visualized.
== END 2022-10-16 14:08 | disposition home or self-care (01) ==
LOC: HO.HOSX 14:07
PROVIDERS: Visit Provider Orthopaedic Surgery
DX: Z13.89 Encounter for screening for other disorder (principal)

== ENCOUNTER → 2022-10-23 13:50 | Outpatient (BNVA) | payer OTHER, SELFPAY | PROVIDERS: PCP Nurse Practitioner Family; Visit Provider Orthopaedic Surgery | DX: S62.336A Displaced fracture of neck of fifth metacarpal bone, right hand, initial encounter for closed fracture (principal); M79.641 Pain in right hand | CPT/HCPCS: 73130; 99202 ==

== ENCOUNTER 2024-03-11 22:11 | Inpatient (IN) | payer OTHER, SELFPAY ==
--- NOTE | ~2024-03-11 | XR_ITS ---
EXAMINATION: XR FOOT, RIGHT CLINICAL INFORMATION: Foreign body right heel, pain COMPARISON: None available. TECHNIQUE: AP, lateral, and oblique views of the right foot. FINDINGS: No radiopaque foreign body is seen. Osseous alignment is anatomic. No acute fracture identified. XR/XR foot RT min 3V IMPRESSION: No radiopaque foreign body identified.
[2024-03-11 23:33] VITALS: BP 146/90; PULSE 105; RESP 18; TEMP 36.7; O2SAT 99; BMI 31.1
--- NOTE | 2024-03-12 | ECG_ITS ---
Test Reason : CHECK QT INTERVAL Blood Pressure : / mmHG Vent. Rate : 078 BPM Atrial Rate : 078 BPM P-R Int : 166 ms QRS Dur : 080 ms QT Int : 386 ms P-R-T Axes : 057 032 029 degrees QTc Int : 440 ms Normal sinus rhythm Possible Left atrial enlargement Borderline ECG When compared with ECG of 04-OCT-2022 16:57, No significant change was found Referred By: Megan Hernández Electronically Signed By:HALLE AYALA
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
--- NOTE | 2024-03-12 01:27 | ED.PSYCH ---
HPI - Psych General Chief Complaint: Psychiatric Symptoms Stated Complaint: High Anxiety Time Seen by Provider: 03/12/24 01:14 Source: patient Mode of arrival: ambulatory Limitations: no limitations History of Present Illness HPI Narrative: Patient comes to the emergency room accompanied by her twin brother. According to the patient, she has been having severe anxiety. It has a bit difficult to follow patient's conversation since she has tangential speech. Starts off saying that she has been having severe anxiety from walking on campus at [facility], because her older brother used to go there and he recently got murdered due to gun violence, then patient changes topics in hard to follow patient's logic. Patient did mentioned that she is on several medications and is compliant with her mood stabilizers and ADHD meds. Patient did not endorse SI or HI to me. What when she got here, the patient spoke with her nurse, endorsing HI towards the two ?baby daddies . Related Data Home Medications ?Medication ?Instructions ?Recorded ?Confirmed drospirenone (contraceptive) 4 mg 1 tab PO DAILY 09/20/22 10/23/22 (28) tablet (Slynd) melatonin 3 mg tablet 2 tab PO QPM 09/20/22 10/23/22 nifedipine 30 mg tablet,extended 1 tab PO DAILY 09/20/22 10/23/22 release 24 hr Previous Rx's ?Medication ?Instructions ?Recorded aripiprazole 20 mg tablet (Abilify) 20 mg PO DAILY #30 tabs 09/29/22 benztropine 0.5 mg tablet 0.5 mg PO BID #60 tabs 09/29/22 hydroxyzine HCl 50 mg tablet 50 mg PO TID PRN Anxiety #90 tabs 09/29/22 nicotine (polacrilex) 2 mg gum 4 mg buccal Q2H PRN Nicotine 09/29/22 Cravings #40 ea nicotine 21 mg/24 hr daily 21 mg transdermal DAILY #14 ea 09/29/22 transdermal patch trazodone 50 mg tablet 50 mg PO BEDTIME PRN Insomnia #30 09/29/22 tabs ketorolac 10 mg tablet 10 mg PO TID PRN pain 5 days #15 10/04/22 tabs Allergies Allergy/AdvReac Type Severity Reaction Status Date / Time bee pollen [bee stings] Allergy Anaphylaxis Verified 03/11/24 23:34 seafood Allergy Anaphylaxis Verified 03/11/24 23:34 Seasonal Allergies Allergy Itchy Eyes Verified 03/11/24 23:34 Review of Systems Review of Systems: Constitutional : No Weight loss, No Fever, No Chills, No Night Sweats, No Fatigue, No Malaise ENT/Mouth : No Hearing loss, No Ear Pain, No Nasal Congestion, No Sinus Pain, No Hoarseness, No sore throat, No Rhinorrhea, No Swallowing Difficulty Eyes: No Eye Pain, No Swelling, No Redness, No Foreign Body, No Discharge, No Vision Changes Cardiovascular : No Chest Pain, No SOB, No Dyspnea on Exertion, No Orthopnea, No Edema, No Palpitations Respiratory : No Cough, No Sputum, No Wheezing, No Smoke Exposure, No Dyspnea Gastrointestinal : No Nausea, No Vomiting, No Diarrhea, No Constipation, No abdominal Pain, No Hematochezia, No Melena Genitourinary : no irregular bleeding, No Dysuria, No Urinary Frequency, No Hematuria, No Urinary Incontinence, No Urgency, No Flank Pain, No Urinary Flow Changes, No Hesitancy Musculoskeletal : No joint pain, No Myalgias, No Joint Swelling Skin : No Skin Lesions, No rash Neuro : No Weakness, No Numbness, No Paresthesias, No Loss of Consciousness, No Dizziness, No Headache Psych : Complaining of anxiety, vague SI, vague HI Heme/Lymph: No Bruising, No Bleeding,No Lymphadenopathy Endocrine : No Polyuria, No Polydipsia, No Temperature Intolerance [facility] Past Medical History Medical History hypertension Post traumatic stress disorder (PTSD) Vaginal bleeding psychosis Family History Family History Family/Other Mental health disorder Substance abuse Social History Social History (Updated 10/23/22 @ 14:11 by Tori Marmolejo RN) Household Members: Significant Other and Children Housing: House Do you presently have visiting nurse or other home services: No Alcohol intake: current Patient Tobacco Use Status: Current everyday Tobacco user Tobacco use type: Cigarette Cigarette Packs Per Day: 2 Cigarettes Per Day: 40.0 Years Smoked: 15 Second Hand Smoke Exposure: Yes Substance Use Type: Marijuana Advance Directives: No Advance Directives Information Provided: No Do you have a plan to hurt others: Vague service: No Current occupational status: unemployed Current occupation: right hand dominant Sexual orientation: Straight/Heterosexual Physical Exam Vital Signs: Vital Signs: Last Vital Signs Temp 98.0 F 03/11/24 23:33 Pulse 105 H 03/11/24 23:33 Resp 18 03/11/24 23:33 BP 146/90 H 03/11/24 23:33 Pulse Ox 99 03/11/24 23:33 O2 Del Method Room Air 03/11/24 23:33 BMI result Body Mass Index 31.1 Const: Other: Appearance: Alert. Oriented X3. No acute distress. Eyes: Pupils equal, round and reactive to light. ENT: Pharynx normal. Neck: Normal inspection. Neck supple. No lymph nodes noted. No crepitus CVS: Normal heart rate and rhythm. Pulses normal. Normal S1 and S2 Respiratory: No respiratory distress. Breath sounds normal. No Wheezing. No rales Abdomen: Soft and nontender. No rigidity. No distention. Skin: Skin warm and dry. Normal skin color. Normal skin turgor. Extremities: No lower extremity edema. No Lacerations. No Rash Neuro: Oriented X 3. No motor deficit. No sensory deficit. Moving all extremities. No slurred speech. CN 2 through 12 grossly intact Psych: calm, trying to be cooperative, tangential speech Course Course Course Narrative: All of patient's labs pending -patient is on a Section 12 -care team consult pending -physician observation started at 01:30 -x-ray of the foot pending, patient states that she feels something sharp in the heel of her right foot. Believes she may have stepped on glass. Medical Decision Making Differential Diagnosis Differential Diagnoses: The differential diagnosis associated with the presentation includes (Anxiety, depression, polysubstance abuse, schizophrenia, psychosis) Admission/Observation Consideration of admission/observation: Escalation of care including admission/observation considered (Patient is on a Section 12 waiting to be seen by the care team) Critical Care Time Critical Care Time Critical Care Time: Yes Total Critical Care Time: 35 Attestation: I have personally provided critical care time. Time includes review of lab data, radiology results, discussion with consultants, and monitoring for potential decompensation. Intervention performed as documented. Discharge Plan Discharge Clinical Impression: Schizophrenia, acute undifferentiated Patient Disposition: Still a Patient Prescriptions: No Action benztropine 0.5 mg Tablet 0.5 mg PO BID Qty: 60 0RF trazodone 50 mg Tablet 50 mg PO BEDTIME PRN (Reason: Insomnia) Qty: 30 0RF nicotine (polacrilex) 2 mg Gum 4 mg buccal Q2H PRN (Reason: Nicotine Cravings) Qty: 40 0RF hydroxyzine HCl 50 mg Tablet 50 mg PO TID PRN (Reason: Anxiety) Qty: 90 0RF nicotine 21 mg/24 hr Patch 24 Hour 21 mg transdermal DAILY Qty: 14 0RF aripiprazole [Abilify] 20 mg Tablet 20 mg PO DAILY Qty: 30 0RF nifedipine 30 mg tablet extended release 24hr 1 tab PO DAILY melatonin 3 mg tablet 2 tab PO QPM Slynd 4 mg (28) tablet 1 tab PO DAILY ketorolac 10 mg tablet 10 mg PO TID PRN (Reason: pain) 5 Days Qty: 15 0RF Print Language: Serbian
[2024-03-12 01:49] LABS: MANUAL DIFF FLAG NO
[2024-03-12 01:50] LABS: Basophils Absolute Auto 0.1 X10*3/uL (0.0-0.2); Basophils Percent Auto 0.4 % (0-2); Eosinophils Absolute Auto 0.1 X10*3/uL (0.0-0.4); Eosinophils Percent Auto 0.6 % (0-4); Hematocrit 37.8 % (37.0-47.0); Hemoglobin 12.9 g/dl (12.0-16.0); Imm Gran Abs Auto 0.04 X10*3/uL (0.00-0.03); Imm Gran Pct Auto 0.3 % (0.0-0.4); Lymphocytes Absolute Auto 3.1 X10*3/uL (1.2-4.9); Mean Corpuscular HGB Conc 34.1 g/dl (31.0-35.0); Mean Corpuscular Hemoglobin 28.9 pg (27.0-33.0); Mean Corpuscular Volume 84.8 fL (80.0-98.0); Monocytes Absolute Auto 0.8 X10*3/uL (0.1-1.2); Monocytes Percent Auto 5.5 % (2-11); Neutrophils Absolute Auto 10.1 x10*3/uL (2.0-8.3); Neutrophils Percent Auto 71.2 % (45-73); Platelet Count 344 X10*3/uL (160-400); Red Blood Count 4.46 X10*6/uL (4.20-5.50); Red Cell Distribution Width 12.8 % (11.0-16.0); White Blood Count 14.1 X10*3/uL (4.8-10.8)
[2024-03-12 02:02] LABS: Ethanol < 10 mg/dL
[2024-03-12 02:04] LABS: Alanine Aminotransferase 34 U/L (0-31); Albumin Level 4.4 g/dL (3.5-5.0); Alkaline Phosphatase 101 U/L (39-117); Anion Gap 14 (12-20); Aspartate Amino Transferase 35 U/L (5-31); Bilirubin Total 0.5 mg/dL (0.0-1.0); Blood Urea Nitrogen 12 mg/dL (9-16); Calcium 8.9 mg/dL (8.4-10.2); Carbon Dioxide 22 mmol/L (22-29); Chloride 104 mmol/L (96-108); Creatinine Clr Calc Pharmacy 89.7; Estimated Glomerular Filt Rate > 60; Glucose Random 126 mg/dL (60-115); Potassium 3.1 mmol/L (3.3-5.1); Sodium 137 mmol/L (135-145); Total Protein 7.6 g/dL (6.5-8.0)
[2024-03-12 02:52] LABS: UPreg QC Valid YES; Urine Pregnancy NEGATIVE (NEGATIVE)
[2024-03-12 02:53] LABS: Appearance Urine Clear; Color Urine Yellow; Glucose Urine UA Negative (Negative); Leukocyte Esterase Urine Small (1+) (Negative); Nitrite Urine Negative (Negative); PH 5.5 (5.0-9.0); Specific Gravity - Urine 1.015 (1.005-1.025); UMIC TRIGGER UACC YES; Urine Blood Large (3+) (Negative); Urine Ketones Negative (Negative); Urine Protein Negative (Neg-Trace)
[2024-03-12 03:00] LABS: Amphetamine Screen Urine Not Detected (Not Detect); Barbiturates, Urine Not Detected (Not Detect); Benzodiazepines Screen Urine Not Detected (Not Detect); Buprenorphine Scr Not Detected (Not Detect); Cannabinoid Screen Urine POSITIVE (Not Detect); Cocaine Screen Urine Not Detected (Not Detect); Fentanyl, urine Not Detected (Not Detect); Methadone Screen, Urine Not Detected (Not Detect); Opiate Screen Urine Not Detected (Not Detect); Oxycodone Screen Urine Not Detected (Not Detect); Phencyclidine Screen Urine Not Detected (Not Detect)
[2024-03-12 03:24] LABS: Bacteria Urine Trace (None Seen); Hyaline Casts Urine 0-2 /LPF (0-2); UACC Culture Trigger YES
[2024-03-12] MEDS: Loratadine 10 MG TABLET PO (05:58)
[2024-03-12 07:22] VITALS: BP 133/87; PULSE 92; RESP 12; TEMP 36.6; O2SAT 99
[2024-03-12] MEDS: Benztropine Mesylate 0.5 MG TABLET PO ×2 (08:54→21:12)
[2024-03-12] MEDS: ARIPiprazole 5 MG TABLET PO (08:54)
--- NOTE | 2024-03-12 09:01 | PC.NURSE ---
Assumed care of patient at 0645, patient ambulating independently around BH pod, now coloring with another patient in the milieu, offering no complaints to this RN, took all morning medications without issue. patient is now a S12 inpatient bedsearch per CARE team
[2024-03-12] MEDS: Ketorolac Tromethamine 60 MG/2 ML VIAL IM (14:39)
[2024-03-12 15:35] VITALS: RESP 16
[2024-03-12 17:01] VITALS: BP 126/92; PULSE 83; RESP 20; TEMP 36.8; O2SAT 100
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
[2024-03-12] MEDS: Nicotine Polacrilex 2 MG GUM 4 MG BUCCAL (18:34)
[2024-03-12 19:41] VITALS: BP 137/85; PULSE 93; RESP 18; TEMP 36.5; O2SAT 100
[2024-03-12] MEDS: lamoTRIgine 25 MG TABLET 75 MG PO (21:12)
[2024-03-13] MEDS: Haloperidol Lactate 5 MG/ML VIAL 10 MG IM (08:28)
[2024-03-13] MEDS: LORazepam 2 MG/ML VIAL IM (08:29)
[2024-03-13] MEDS: diphenhydrAMINE HCL 50 MG/ML VIAL IM (09:01)
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
[2024-03-13 09:30] VITALS: BP 119/76; PULSE 87; RESP 16; TEMP 36.3; O2SAT 97
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
[2024-03-13 20:26] VITALS: BP 120/89; PULSE 98; RESP 16; TEMP 36.6; O2SAT 100
[2024-03-13] MEDS: Benztropine Mesylate 0.5 MG TABLET PO (21:03)
[2024-03-13] MEDS: lamoTRIgine 25 MG TABLET 75 MG PO (21:03)
[2024-03-13] MEDS: Melatonin 3 MG TABLET 6 MG PO (21:03)
[2024-03-13] MEDS: Ibuprofen 600 MG TABLET PO (21:04)
[2024-03-13] MEDS: Artificial Tears 15 ML DROPS 2 DROP EYE-BOTH (21:13)
[2024-03-13] MEDS: Nicotine Polacrilex 2 MG GUM 4 MG BUCCAL (21:13)
[2024-03-14 07:41] VITALS: BP 131/81; PULSE 86; RESP 16; TEMP 36.6; O2SAT 100
[2024-03-14] MEDS: Nicotine Polacrilex 2 MG GUM 4 MG BUCCAL (08:49)
[2024-03-14] MEDS: Benztropine Mesylate 0.5 MG TABLET PO ×2 (08:54→20:57)
[2024-03-14] MEDS: ARIPiprazole 5 MG TABLET PO (08:54)
[2024-03-14 09:12] LABS: Cholesterol 150 mg/dL (<200); HDL Cholesterol 48 mg/dL (>40); LDL Cholesterol Calculated 87 mg/dL (<100); Triglycerides 78 mg/dL (<150)
[2024-03-14 09:21] LABS: Estimated Average Glucose 114 mg/dL; Hemoglobin A1c % 5.6 % (<6.0)
[2024-03-14 09:27] LABS: Free T4 (Free Thyroxine) 0.99 ng/dL (0.71-1.85)
[2024-03-14 10:57] LABS: Folate 12.6 ng/mL (> or = 4.0); Vitamin B12 1042 pg/mL (200-900)
[2024-03-14] MEDS: buPROPion HCl XL 150 MG TAB.ER.24H PO (11:39)
[2024-03-14] MEDS: hydrOXYzine HCL 25 MG TABLET PO (13:05)
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
[2024-03-14 20:00] VITALS: BP 133/78; PULSE 105; RESP 18; TEMP 37; O2SAT 99
[2024-03-14] MEDS: Melatonin 3 MG TABLET 6 MG PO (20:57)
[2024-03-14] MEDS: lamoTRIgine 25 MG TABLET 75 MG PO (20:57)
[2024-03-15] MEDS: Loratadine 10 MG TABLET PO ×2 (00:49→16:48)
[2024-03-15] MEDS: Ibuprofen 600 MG TABLET PO (00:51)
[2024-03-15] MEDS: Nicotine Polacrilex 2 MG GUM BUCCAL (07:13)
[2024-03-15 07:51] VITALS: BP 126/60; PULSE 81; RESP 16; TEMP 36.4; O2SAT 99
[2024-03-15] MEDS: ARIPiprazole 5 MG TABLET PO (08:42)
[2024-03-15] MEDS: Benztropine Mesylate 0.5 MG TABLET PO ×2 (08:42→20:41)
[2024-03-15] MEDS: buPROPion HCl XL 150 MG TAB.ER.24H PO (08:42)
--- NOTE | 2024-03-15 10:06 | HO.PSYCHPN ---
Subjective Subjective Date of Service: 03/15/24 Reason For Visit: Psychosis Subjective Notes: 3 Day Interim History: met with patient. Discussed with Nursing. Aware of restraint 2 days ago. Reports today that she is feeling better. Reports being more calm, not belligerent and her sugars are better too . attribute this to the medications. Was asking around a long-acting injectable version of Abilify and would prefer this. Reports that is helpful for hallucinations. Would prefer visiting nurse services to give this injection in the community after discharge. Medication Compliance: Yes Side effects from medications: No Attending Groups: Intermittent Review of Systems Acute medical concerns: No Review of Systems Review of Systems Yes all other systems are reviewed and are negative Mental Status Exam Mental Status Exam Narrative: Pleasant. Engaged. Casually dressed presented. Fair self-care. Is organized. Largely euthymic. No SI or HI. Denies current hallucinations. No overt psychosis. Insight and judgment improving Diagnostics Vital Signs (24Hr): Vital Signs - 24 hr 03/14/24 20:00 03/15/24 07:51 Temperature 98.6 F 97.6 F Pulse Rate 105 H 81 Respiratory Rate 18 16 Blood Pressure 133/78 126/60 Pulse Oximetry 99 99 Oxygen Delivery Method Room Air Room Air BMI result Body Mass Index 31.1 Labs 03/12/24 01:44 03/12/24 01:44 Labs: Laboratory Results - last 48 hr 03/14/24 08:34 Estimat Average Glucose 114 Hemoglobin A1c % 5.6 Triglycerides 78 Cholesterol 150 LDL Cholesterol, Calc 87 HDL Cholesterol 48 Vitamin B12 1042 H Folate 12.6 TSH 0.50 Free T4 0.99 Imaging Radiology Impressions: ITS Impressions Foot X-Ray 03/12/24 02:00 IMPRESSION: No radiopaque foreign body identified. Medications Medications Current Medications Acetaminophen (Acetaminophen 325 Mg Tablet) 650 mg PO Q6H PRN PRN Reason: Headache/Pain Mild Scale (1-3) Al Hydroxide/Mg Hydroxide (Magnesium Hydrox/Alum Hydrox 30 Ml Oral.Susp) 30 ml PO Q6H PRN PRN Reason: Heartburn/Nausea Aripiprazole (Aripiprazole 5 Mg Tablet) 5 mg PO DAILY [facility] Last Admin: 03/15/24 08:42 Dose: 5 mg Artificial Tears (Artificial Tears 15 Ml Drops) 2 drop EYE-BOTH Q4H PRN PRN Reason: dry eyes Last Admin: 03/13/24 21:13 Dose: 2 drop Benztropine Mesylate (Benztropine Mesylate 0.5 Mg Tablet) 0.5 mg PO BID [facility] Last Admin: 03/15/24 08:42 Dose: 0.5 mg Bupropion HCl (Bupropion Hcl Xl 150 Mg Tab.Er.24h) 150 mg PO DAILY [facility] Last Admin: 03/15/24 08:42 Dose: 150 mg Hydroxyzine HCl (Hydroxyzine Hcl 10 Mg Tablet) 10 mg PO TID PRN PRN Reason: Anxiety Hydroxyzine HCl (Hydroxyzine Hcl 25 Mg Tablet) 25 mg PO Q6H PRN PRN Reason: Anxiety Last Admin: 03/14/24 13:05 Dose: 25 mg Ibuprofen (Ibuprofen 600 Mg Tablet) 600 mg PO Q8H PRN PRN Reason: Pain, Moderate(Pain Scale 4-6) Last Admin: 03/15/24 00:51 Dose: 600 mg Lamotrigine (Lamotrigine 25 Mg Tablet) 75 mg PO BEDTIME [facility] Last Admin: 03/14/24 20:57 Dose: 75 mg Loratadine (Loratadine 10 Mg Tablet) 10 mg PO DAILY PRN PRN Reason: itch Last Admin: 03/15/24 00:49 Dose: 10 mg Magnesium Hydroxide (Milk Of Magnesia 30 Ml Oral.Susp) 30 ml PO DAILY PRN PRN Reason: Constipation Magnesium Oxide (Magnesium Oxide 400 Mg Tablet) 400 mg PO DAILY PRN PRN Reason: Headache Melatonin (Melatonin 3 Mg Tablet) 6 mg PO BEDTIME PRN PRN Reason: Insomnia Last Admin: 03/14/24 20:57 Dose: 6 mg Nicotine Polacrilex (Nicotine Polacrilex 2 Mg Gum) 2 mg BUCCAL Q2H PRN PRN Reason: Nicotine Cravings Last Admin: 03/15/24 07:13 Dose: 2 mg Trazodone HCl (Trazodone Hcl 50 Mg Tablet) 50 mg PO BEDTIME MRX1 PRN PRN Reason: Insomnia Allergies Allergies Allergy/AdvReac Type Severity Reaction Status Date / Time bee pollen [bee stings] Allergy Anaphylaxis Verified 03/11/24 23:34 seafood Allergy Anaphylaxis Verified 03/11/24 23:34 Seasonal Allergies Allergy Itchy Eyes Verified 03/11/24 23:34 Assessment & Plan Assessment & Plan (1) Schizoaffective disorder, bipolar type: Status: Acute Code(s): F25.0 - Schizoaffective disorder, bipolar type Plan 03/13: restart/continue outpt medications regimen. 03/14: declining to change mood stabilizer or antipsychotic. abilify 5 and lamictal 75 is unlikely to be an adequate regimen to control her price. willing to DC wellbutrin SR 100 daily and take wellbutrin XL 150 daily instead. 03/15: Was asking around a long-acting injectable version of Abilify and would prefer this. Reports that is helpful for hallucinations. Would prefer visiting nurse services to give this injection in the community after discharge. Reason for continued inpatient stay Substantial Risk for: inability to function and rapid decompensation Time Spent With Patient Time: Total time managing care of this patient today ____ minutes.
[2024-03-15 11:19] LABS: COVID-19 Test Negative (Negative); IDNOW Serial# 152EDE1D
[2024-03-15] MEDS: Throat Lozenge, Medicated LOZENGE 1 LOZENGE MUCOUS MEM ×2 (15:27→19:07)
[2024-03-15] MEDS: lamoTRIgine 25 MG TABLET 75 MG PO (20:41)
[2024-03-15 20:45] VITALS: BP 123/65; PULSE 97; RESP 16; O2SAT 99
[2024-03-15] MEDS: traZODone HCL 50 MG TABLET PO (22:15)
[2024-03-15] MEDS: Melatonin 3 MG TABLET 6 MG PO (22:15)
[2024-03-16] MEDS: Throat Lozenge, Medicated LOZENGE 1 LOZENGE MUCOUS MEM (05:13)
[2024-03-16] MEDS: Loratadine 10 MG TABLET PO (05:13)
[2024-03-16 08:00] VITALS: BP 120/75; PULSE 89; RESP 18; TEMP 36.4; O2SAT 99
[2024-03-16] MEDS: Benztropine Mesylate 0.5 MG TABLET PO ×2 (08:29→21:49)
[2024-03-16] MEDS: ARIPiprazole 5 MG TABLET PO (08:29)
[2024-03-16] MEDS: buPROPion HCl XL 150 MG TAB.ER.24H PO (08:29)
[2024-03-16] MEDS: Acetaminophen 325 MG TABLET 650 MG PO (08:32)
--- NOTE | 2024-03-16 10:37 | HO.PSYCHPN ---
Subjective Subjective Date of Service: 03/16/24 Reason For Visit: Psychosis Interim History: Met with patient. Discussed with Nursing. Doing well. Engaged in groups and milieu. Still eager for long-acting injectable version of Abilify and would prefer this- helpful for hallucinations. Would prefer visiting nurse services to give this injection in the community after discharge. Review of Systems Review of Systems Yes all other systems are reviewed and are negative Mental Status Exam Mental Status Exam Narrative: Pleasant. Engaged. Casually dressed presented. Fair self-care. Is organized. Largely euthymic. No SI or HI. Denies current hallucinations. No overt psychosis. Insight and judgment improving Diagnostics Vital Signs (24Hr): Vital Signs - 24 hr 03/15/24 20:45 03/16/24 08:00 Temperature 97.6 F Pulse Rate 97 89 Respiratory Rate 16 18 Blood Pressure 123/65 120/75 Pulse Oximetry 99 99 Oxygen Delivery Method Room Air Room Air BMI result Body Mass Index 31.1 Labs 03/12/24 01:44 03/12/24 01:44 Labs: Laboratory Results - last 48 hr 03/14/24 03/15/24 08:34 10:55 Vitamin B12 1042 H Folate 12.6 COVID-19 (RIDDHI) Negative COVID-19 Clin Com See Note Imaging Radiology Impressions: ITS Impressions Foot X-Ray 03/12/24 02:00 IMPRESSION: No radiopaque foreign body identified. Medications Medications Current Medications Acetaminophen (Acetaminophen 325 Mg Tablet) 650 mg PO Q6H PRN PRN Reason: Headache/Pain Mild Scale (1-3) Last Admin: 03/16/24 08:32 Dose: 650 mg Al Hydroxide/Mg Hydroxide (Magnesium Hydrox/Alum Hydrox 30 Ml Oral.Susp) 30 ml PO Q6H PRN PRN Reason: Heartburn/Nausea Aripiprazole (Aripiprazole 5 Mg Tablet) 5 mg PO DAILY [facility] Last Admin: 03/16/24 08:29 Dose: 5 mg Artificial Tears (Artificial Tears 15 Ml Drops) 2 drop EYE-BOTH Q4H PRN PRN Reason: dry eyes Last Admin: 03/13/24 21:13 Dose: 2 drop Benzocaine (Throat Lozenge, Medicated Lozenge) 1 lozenge MUCOUS MEM Q2H PRN PRN Reason: Sore Throat Last Admin: 03/16/24 05:13 Dose: 1 lozenge Benztropine Mesylate (Benztropine Mesylate 0.5 Mg Tablet) 0.5 mg PO BID [facility] Last Admin: 03/16/24 08:29 Dose: 0.5 mg Bupropion HCl (Bupropion Hcl Xl 150 Mg Tab.Er.24h) 150 mg PO DAILY [facility] Last Admin: 03/16/24 08:29 Dose: 150 mg Hydroxyzine HCl (Hydroxyzine Hcl 10 Mg Tablet) 10 mg PO TID PRN PRN Reason: Anxiety Hydroxyzine HCl (Hydroxyzine Hcl 25 Mg Tablet) 25 mg PO Q6H PRN PRN Reason: Anxiety Last Admin: 03/14/24 13:05 Dose: 25 mg Ibuprofen (Ibuprofen 600 Mg Tablet) 600 mg PO Q8H PRN PRN Reason: Pain, Moderate(Pain Scale 4-6) Last Admin: 03/15/24 00:51 Dose: 600 mg Lamotrigine (Lamotrigine 25 Mg Tablet) 75 mg PO BEDTIME [facility] Last Admin: 03/15/24 20:41 Dose: 75 mg Loratadine (Loratadine 10 Mg Tablet) 10 mg PO DAILY PRN PRN Reason: itch Last Admin: 03/16/24 05:13 Dose: 10 mg Magnesium Hydroxide (Milk Of Magnesia 30 Ml Oral.Susp) 30 ml PO DAILY PRN PRN Reason: Constipation Magnesium Oxide (Magnesium Oxide 400 Mg Tablet) 400 mg PO DAILY PRN PRN Reason: Headache Melatonin (Melatonin 3 Mg Tablet) 6 mg PO BEDTIME PRN PRN Reason: Insomnia Last Admin: 03/15/24 22:15 Dose: 6 mg Nicotine Polacrilex (Nicotine Polacrilex 2 Mg Gum) 2 mg BUCCAL Q2H PRN PRN Reason: Nicotine Cravings Last Admin: 03/15/24 07:13 Dose: 2 mg Trazodone HCl (Trazodone Hcl 50 Mg Tablet) 50 mg PO BEDTIME MRX1 PRN PRN Reason: Insomnia Last Admin: 03/15/24 22:15 Dose: 50 mg Allergies Allergies Allergy/AdvReac Type Severity Reaction Status Date / Time bee pollen [bee stings] Allergy Anaphylaxis Verified 03/11/24 23:34 seafood Allergy Anaphylaxis Verified 03/11/24 23:34 Seasonal Allergies Allergy Itchy Eyes Verified 03/11/24 23:34 Assessment & Plan Assessment & Plan (1) Schizoaffective disorder, bipolar type: Status: Acute Code(s): F25.0 - Schizoaffective disorder, bipolar type Plan 03/13: restart/continue outpt medications regimen. 03/14: declining to change mood stabilizer or antipsychotic. abilify 5 and lamictal 75 is unlikely to be an adequate regimen to control her price. willing to DC wellbutrin SR 100 daily and take wellbutrin XL 150 daily instead. 03/15: Was asking around a long-acting injectable version of Abilify and would prefer this. Reports that is helpful for hallucinations. Would prefer visiting nurse services to give this injection in the community after discharge. 03/16: eager for long-acting injectable version of Abilify with visiting nurse services to give this injection in the community after discharge Reason for continued inpatient stay Substantial Risk for: harm to others and rapid decompensation Time Spent With Patient Time: Total time managing care of this patient today ____ minutes.
[2024-03-16 19:40] VITALS: BP 147/79; PULSE 110; RESP 17; TEMP 36.9; O2SAT 100
[2024-03-16] MEDS: lamoTRIgine 25 MG TABLET 75 MG PO (21:49)
[2024-03-16] MEDS: traZODone HCL 50 MG TABLET PO (21:49)
[2024-03-17] MEDS: Magnesium Hydrox/Alum Hydrox 30 ML ORAL.SUSP PO (00:12)
[2024-03-17] MEDS: Throat Lozenge, Medicated LOZENGE 1 LOZENGE MUCOUS MEM ×3 (00:13→20:40)
[2024-03-17] MEDS: Loratadine 10 MG TABLET PO (00:13)
[2024-03-17] MEDS: Melatonin 3 MG TABLET 6 MG PO ×2 (01:38→20:36)
[2024-03-17] MEDS: hydrOXYzine HCL 25 MG TABLET PO (01:38)
[2024-03-17 07:59] VITALS: BP 128/79; PULSE 94; RESP 16; TEMP 36.7; O2SAT 99
[2024-03-17] MEDS: ARIPiprazole 5 MG TABLET PO (08:14)
[2024-03-17] MEDS: buPROPion HCl XL 150 MG TAB.ER.24H PO (08:15)
[2024-03-17] MEDS: Benztropine Mesylate 0.5 MG TABLET PO ×2 (08:15→20:36)
--- NOTE | 2024-03-17 09:55 | P.PNPSI_ITS ---
Subjective Subjective Reason For Visit: Psychosis Diagnostics Vital Signs (24Hr): Vital Signs - 24 hr 03/16/24 19:40 03/17/24 07:59 Temperature 98.5 F 98.1 F Pulse Rate 110 H 94 Respiratory Rate 17 16 Blood Pressure 147/79 H 128/79 Pulse Oximetry 100 99 Oxygen Delivery Method Room Air Room Air BMI result Body Mass Index 31.1 Labs 03/12/24 01:44 03/12/24 01:44 Labs: Laboratory Results - last 48 hr 03/15/24 10:55 COVID-19 (RIDDHI) Negative COVID-19 Clin Com See Note Imaging Radiology Impressions: ITS Impressions Foot X-Ray 03/12/24 02:00 IMPRESSION: No radiopaque foreign body identified. Medications Medications Current Medications Acetaminophen (Acetaminophen 325 Mg Tablet) 650 mg PO Q6H PRN PRN Reason: Headache/Pain Mild Scale (1-3) Last Admin: 03/16/24 08:32 Dose: 650 mg Al Hydroxide/Mg Hydroxide (Magnesium Hydrox/Alum Hydrox 30 Ml Oral.Susp) 30 ml PO Q6H PRN PRN Reason: Heartburn/Nausea Last Admin: 03/17/24 00:12 Dose: 30 ml Aripiprazole (Aripiprazole 5 Mg Tablet) 5 mg PO DAILY [facility] Last Admin: 03/17/24 08:14 Dose: 5 mg Artificial Tears (Artificial Tears 15 Ml Drops) 2 drop EYE-BOTH Q4H PRN PRN Reason: dry eyes Last Admin: 03/13/24 21:13 Dose: 2 drop Benzocaine (Throat Lozenge, Medicated Lozenge) 1 lozenge MUCOUS MEM Q2H PRN PRN Reason: Sore Throat Last Admin: 03/17/24 02:03 Dose: 1 lozenge Benztropine Mesylate (Benztropine Mesylate 0.5 Mg Tablet) 0.5 mg PO BID [facility] Last Admin: 03/17/24 08:15 Dose: 0.5 mg Bupropion HCl (Bupropion Hcl Xl 150 Mg Tab.Er.24h) 150 mg PO DAILY [facility] Last Admin: 03/17/24 08:15 Dose: 150 mg Hydroxyzine HCl (Hydroxyzine Hcl 10 Mg Tablet) 10 mg PO TID PRN PRN Reason: Anxiety Hydroxyzine HCl (Hydroxyzine Hcl 25 Mg Tablet) 25 mg PO Q6H PRN PRN Reason: Anxiety Last Admin: 03/17/24 01:38 Dose: 25 mg Ibuprofen (Ibuprofen 600 Mg Tablet) 600 mg PO Q8H PRN PRN Reason: Pain, Moderate(Pain Scale 4-6) Last Admin: 03/15/24 00:51 Dose: 600 mg Lamotrigine (Lamotrigine 25 Mg Tablet) 75 mg PO BEDTIME JUDIT Last Admin: 03/16/24 21:49 Dose: 75 mg Loratadine (Loratadine 10 Mg Tablet) 10 mg PO DAILY PRN PRN Reason: itch Last Admin: 03/17/24 00:13 Dose: 10 mg Magnesium Hydroxide (Milk Of Magnesia 30 Ml Oral.Susp) 30 ml PO DAILY PRN PRN Reason: Constipation Magnesium Oxide (Magnesium Oxide 400 Mg Tablet) 400 mg PO DAILY PRN PRN Reason: Headache Melatonin (Melatonin 3 Mg Tablet) 6 mg PO BEDTIME PRN PRN Reason: Insomnia Last Admin: 03/17/24 01:38 Dose: 6 mg Nicotine Polacrilex (Nicotine Polacrilex 2 Mg Gum) 2 mg BUCCAL Q2H PRN PRN Reason: Nicotine Cravings Last Admin: 03/15/24 07:13 Dose: 2 mg Trazodone HCl (Trazodone Hcl 50 Mg Tablet) 50 mg PO BEDTIME MRX1 PRN PRN Reason: Insomnia Last Admin: 03/16/24 21:49 Dose: 50 mg Allergies Allergies Allergy/AdvReac Type Severity Reaction Status Date / Time bee pollen [bee stings] Allergy Anaphylaxis Verified 03/11/24 23:34 seafood Allergy Anaphylaxis Verified 03/11/24 23:34 Seasonal Allergies Allergy Itchy Eyes Verified 03/11/24 23:34 Assessment & Plan Assessment & Plan (1) Schizoaffective disorder, bipolar type: Status: Acute Code(s): F25.0 - Schizoaffective disorder, bipolar type Plan 5/2: restart/continue outpt medications regimen. 5/3: declining to change mood stabilizer or antipsychotic. abilify 5 and lamictal 75 is unlikely to be an adequate regimen to control her price. willing to DC wellbutrin SR 100 daily and take wellbutrin XL 150 daily instead. 5/4: Was asking around a long-acting injectable version of Abilify and would prefer this. Reports that is helpful for hallucinations. Would prefer visiting nurse services to give this injection in the community after discharge. 03/16: eager for long-acting injectable version of Abilify with visiting nurse services to give this injection in the community after discharge Time Spent With Patient Time: Total time managing care of this patient today ____ minutes.
--- NOTE | 2024-03-17 11:03 | HO.PSYCHPN ---
Subjective Subjective Date of Service: 03/17/24 Reason For Visit: Psychosis Healthcare Proxy: No Guardianship: No Medical Problems Affecting Mental Status: No Interim History: Met with patient. Discussed with Nursing. pt reports doing well. Engaged in groups and milieu. she and I went over her meds; she would like to switch to LEDEZMA abilify. Would prefer visiting nurse services to give this injection in the community after discharge. Focused on discharge. Medication Compliance: Yes Side effects from medications: No Attending Groups: Intermittent Review of Systems Acute medical concerns: No Medical Review of Systems: unchanged Review of Systems Review of Systems Constitutional : No Weight loss, No Fever, No Chills, No Night Sweats, No Fatigue, No Malaise ENT/Mouth : No Hearing loss, No Ear Pain, No Nasal Congestion, No Sinus Pain, No Hoarseness, No sore throat, No Rhinorrhea, No Swallowing Difficulty Eyes: No Eye Pain, No Swelling, No Redness, No Foreign Body, No Discharge, No Vision Changes Cardiovascular : No Chest Pain, No SOB, No Dyspnea on Exertion, No Orthopnea, No Edema, No Palpitations Respiratory : No Cough, No Sputum, No Wheezing, No Smoke Exposure, No Dyspnea Gastrointestinal : No Nausea, No Vomiting, No Diarrhea, No Constipation, No abdominal Pain, No Hematochezia, No Melena Genitourinary : no irregular bleeding, No Dysuria, No Urinary Frequency, No Hematuria, No Urinary Incontinence, No Urgency, No Flank Pain, No Urinary Flow Changes, No Hesitancy Musculoskeletal : No joint pain, No Myalgias, No Joint Swelling Skin : No Skin Lesions, No rash Neuro : No Weakness, No Numbness, No Paresthesias, No Loss of Consciousness, No Dizziness, No Headache Psych : Complaining of anxiety, vague SI, vague HI Heme/Lymph: No Bruising, No Bleeding,No Lymphadenopathy Endocrine : No Polyuria, No Polydipsia, No Temperature Intolerance Yes all other systems are reviewed and are negative Mental Status Exam Mental Status Exam Narrative: Pleasant. Engaged. Casually dressed presented. Fair self-care. Is organized. Largely euthymic. No SI or HI. Denies current hallucinations. No overt psychosis. Insight and judgment improving Diagnostics Vital Signs (24Hr): Vital Signs - 24 hr 03/16/24 19:40 03/17/24 07:59 Temperature 98.5 F 98.1 F Pulse Rate 110 H 94 Respiratory Rate 17 16 Blood Pressure 147/79 H 128/79 Pulse Oximetry 100 99 Oxygen Delivery Method Room Air Room Air BMI result Body Mass Index 31.1 Labs 03/12/24 01:44 03/12/24 01:44 Labs: Laboratory Results - last 48 hr 03/15/24 10:55 COVID-19 (RIDDHI) Negative COVID-19 Clin Com See Note Imaging Radiology Impressions: ITS Impressions Foot X-Ray 03/12/24 02:00 IMPRESSION: No radiopaque foreign body identified. Medications Medications Current Medications Acetaminophen (Acetaminophen 325 Mg Tablet) 650 mg PO Q6H PRN PRN Reason: Headache/Pain Mild Scale (1-3) Last Admin: 03/16/24 08:32 Dose: 650 mg Al Hydroxide/Mg Hydroxide (Magnesium Hydrox/Alum Hydrox 30 Ml Oral.Susp) 30 ml PO Q6H PRN PRN Reason: Heartburn/Nausea Last Admin: 03/17/24 00:12 Dose: 30 ml Aripiprazole (Aripiprazole 5 Mg Tablet) 5 mg PO DAILY [facility] Last Admin: 03/17/24 08:14 Dose: 5 mg Artificial Tears (Artificial Tears 15 Ml Drops) 2 drop EYE-BOTH Q4H PRN PRN Reason: dry eyes Last Admin: 03/13/24 21:13 Dose: 2 drop Benzocaine (Throat Lozenge, Medicated Lozenge) 1 lozenge MUCOUS MEM Q2H PRN PRN Reason: Sore Throat Last Admin: 03/17/24 02:03 Dose: 1 lozenge Benztropine Mesylate (Benztropine Mesylate 0.5 Mg Tablet) 0.5 mg PO BID [facility] Last Admin: 03/17/24 08:15 Dose: 0.5 mg Bupropion HCl (Bupropion Hcl Xl 150 Mg Tab.Er.24h) 150 mg PO DAILY [facility] Last Admin: 03/17/24 08:15 Dose: 150 mg Hydroxyzine HCl (Hydroxyzine Hcl 10 Mg Tablet) 10 mg PO TID PRN PRN Reason: Anxiety Hydroxyzine HCl (Hydroxyzine Hcl 25 Mg Tablet) 25 mg PO Q6H PRN PRN Reason: Anxiety Last Admin: 03/17/24 01:38 Dose: 25 mg Ibuprofen (Ibuprofen 600 Mg Tablet) 600 mg PO Q8H PRN PRN Reason: Pain, Moderate(Pain Scale 4-6) Last Admin: 03/15/24 00:51 Dose: 600 mg Lamotrigine (Lamotrigine 25 Mg Tablet) 75 mg PO BEDTIME JUDIT Last Admin: 03/16/24 21:49 Dose: 75 mg Loratadine (Loratadine 10 Mg Tablet) 10 mg PO DAILY PRN PRN Reason: itch Last Admin: 03/17/24 00:13 Dose: 10 mg Magnesium Hydroxide (Milk Of Magnesia 30 Ml Oral.Susp) 30 ml PO DAILY PRN PRN Reason: Constipation Magnesium Oxide (Magnesium Oxide 400 Mg Tablet) 400 mg PO DAILY PRN PRN Reason: Headache Melatonin (Melatonin 3 Mg Tablet) 6 mg PO BEDTIME PRN PRN Reason: Insomnia Last Admin: 03/17/24 01:38 Dose: 6 mg Nicotine Polacrilex (Nicotine Polacrilex 2 Mg Gum) 2 mg BUCCAL Q2H PRN PRN Reason: Nicotine Cravings Last Admin: 03/15/24 07:13 Dose: 2 mg Trazodone HCl (Trazodone Hcl 50 Mg Tablet) 50 mg PO BEDTIME MRX1 PRN PRN Reason: Insomnia Last Admin: 03/16/24 21:49 Dose: 50 mg Allergies Allergies Allergy/AdvReac Type Severity Reaction Status Date / Time bee pollen [bee stings] Allergy Anaphylaxis Verified 03/11/24 23:34 seafood Allergy Anaphylaxis Verified 03/11/24 23:34 Seasonal Allergies Allergy Itchy Eyes Verified 03/11/24 23:34 Assessment & Plan Assessment & Plan (1) Schizoaffective disorder, bipolar type: Status: Acute Code(s): F25.0 - Schizoaffective disorder, bipolar type Plan continue current medications consider switching over to LEDEZMA dianalify Patient educated on: diagnosis, medication risk/benefits and therapeutic strategies Informed Consent: further education needed Reason for continued inpatient stay Substantial Risk for: inability to function Time Spent With Patient Time: Total time managing care of this patient today ____ minutes.
[2024-03-17 19:45] VITALS: BP 114/73; PULSE 93; RESP 16; TEMP 36.9; O2SAT 100
[2024-03-17] MEDS: traZODone HCL 50 MG TABLET PO (20:35)
[2024-03-17] MEDS: lamoTRIgine 25 MG TABLET 75 MG PO (20:36)
[2024-03-18] MEDS: Loratadine 10 MG TABLET PO (00:48)
[2024-03-18] MEDS: Throat Lozenge, Medicated LOZENGE 1 LOZENGE MUCOUS MEM (00:48)
[2024-03-18 07:42] VITALS: BP 114/64; PULSE 94; RESP 14; TEMP 36.8; O2SAT 100
[2024-03-18] MEDS: buPROPion HCl XL 150 MG TAB.ER.24H PO (09:31)
[2024-03-18] MEDS: Benztropine Mesylate 0.5 MG TABLET PO (09:31)
[2024-03-18] MEDS: ARIPiprazole 5 MG TABLET PO (09:31)
--- NOTE | 2024-03-18 10:26 | P.DS_ITS ---
DS: Providers Provider Date of Service: 03/18/24 Date of admission: 03/12/24 14:45 Date of discharge: 03/18/24 Primary care physician: Ling Page NP Admitting clinician: Lázaro Chin Attending physician on admission: Lázaro Chin Attending physician on discharge: Valeria Christensen Discharging clinician: Valeria Christensen DS: Diagnosis Discharge Diagnosis (1) Schizoaffective disorder, bipolar type: Start date: 03/12/24 Start time: 12:00 Status: Acute DS: Medications Discharge Medications Home Medications: Previous Rx's ?Medication ?Instructions ?Recorded aripiprazole 5 mg tablet (Abilify) 7.5 mg (1.5 x 5 mg) PO DAILY #30 03/18/24 tabs benztropine 0.5 mg tablet 0.5 mg PO BID #60 tabs 03/18/24 bupropion HCl 150 mg 24 hr tablet, 150 mg PO DAILY #30 tabs 03/18/24 extended release hydroxyzine HCl 10 mg tablet 10 mg PO TID PRN Anxiety #60 tabs 03/18/24 lamotrigine 25 mg tablet 75 mg (3 x 25 mg) PO BEDTIME #90 03/18/24 tabs loratadine 10 mg tablet 10 mg PO DAILY PRN itch #30 tabs 03/18/24 magnesium oxide 400 mg (241.3 mg 400 mg PO DAILY PRN Headache #30 03/18/24 magnesium) tablet tabs melatonin 3 mg tablet 6 mg (2 x 3 mg) PO BEDTIME PRN 03/18/24 Insomnia #60 tabs trazodone 50 mg tablet 50 mg PO BEDTIME MRX1 PRN Insomnia 03/18/24 #30 tabs Mental Status Exam Mental Status Exam Narrative: Pleasant. Engaged. Casually dressed presented. Fair self-care. Is organized. Largely euthymic. No SI or HI. Denies current hallucinations. No overt psychosis. Insight and judgment improving Data Data Completed and Pending Completed studies during hospitalization [Text1]: 03/12/24 03/12/24 03/12/24 01:44 02:32 02:33 WBC 14.1 H RBC 4.46 Hgb 12.9 Hct 37.8 MCV 84.8 MCH 28.9 MCHC 34.1 RDW 12.8 Plt Count 344 MPV 10.0 Immature Gran % (Auto) 0.3 Neut % (Auto) 71.2 Lymph % (Auto) 22.0 [place] % (Auto) 5.5 Eos % (Auto) 0.6 Baso % (Auto) 0.4 Lymph # (Auto) 3.1 [place] # (Auto) 0.8 Eos # (Auto) 0.1 Baso # (Auto) 0.1 Abs Immat Gran (auto) 0.04 H Absolute Neuts (auto) 10.1 H Absolute Nucleated RBC 0.000 Nucleated RBC % (auto) 0.0 Sodium 137 Potassium 3.1 L Chloride 104 Carbon Dioxide 22 Anion Gap 14 BUN 12 Creatinine 0.84 Estim Creat Clear Calc 89.7 Estimated GFR > 60 Random Glucose 126 H Estimat Average Glucose Hemoglobin A1c % Calcium 8.9 D Total Bilirubin 0.5 AST 35 H ALT 34 H Alkaline Phosphatase 101 Total Protein 7.6 Albumin 4.4 Triglycerides Cholesterol LDL Cholesterol, Calc HDL Cholesterol Vitamin B12 Folate TSH Free T4 Urine Color Yellow Urine Appearance Clear Urine pH 5.5 Ur Specific [place] 1.015 Urine Protein Negative Urine Glucose (UA) Negative Urine Ketones Negative Urine Blood Large (3+) H Urine Nitrite Negative Ur Leukocyte Esterase Small (1+) H Urine RBC 3-5 H Urine WBC 6-10 H Ur Squamous Epith Cells 6-10 Urine Bacteria Trace Hyaline Casts 0-2 Urine Test NEGATIVE Urine Opiates Screen Not Detected Ur Buprenorphine Scrn Not Detected Ur Oxycodone Screen Not Detected Urine Methadone Screen Not Detected Urine Fentanyl Screen Not Detected Ur Barbiturates Screen Not Detected Ur Phencyclidine Scrn Not Detected Ur Amphetamines Screen Not Detected U Benzodiazepines Scrn Not Detected Urine Cocaine Screen Not Detected U Marijuana (THC) Screen POSITIVE H Ethyl Alcohol < 10 COVID-19 ([facility]IDDHI) COVID-19 Clin Com 03/14/24 03/15/24 08:34 10:55 WBC RBC Hgb Hct MCV MCH MCHC RDW Plt Count MPV Immature Gran % (Auto) Neut % (Auto) Lymph % (Auto) [place] % (Auto) Eos % (Auto) Baso % (Auto) Lymph # (Auto) [place] # (Auto) Eos # (Auto) Baso # (Auto) Abs Immat Gran (auto) Absolute Neuts (auto) Absolute Nucleated RBC Nucleated RBC % (auto) Sodium Potassium Chloride Carbon Dioxide Anion Gap BUN Creatinine Estim Creat Clear Calc Estimated GFR Random Glucose Estimat Average Glucose 114 Hemoglobin A1c % 5.6 Calcium Total Bilirubin AST ALT Alkaline Phosphatase Total Protein Albumin Triglycerides 78 Cholesterol 150 LDL Cholesterol, Calc 87 HDL Cholesterol 48 Vitamin B12 1042 H Folate 12.6 TSH 0.50 Free T4 0.99 Urine Color Urine Appearance Urine pH Ur Specific [place] Urine Protein Urine Glucose (UA) Urine Ketones Urine Blood Urine Nitrite Ur Leukocyte Esterase Urine RBC Urine WBC Ur Squamous Epith Cells Urine Bacteria Hyaline Casts Urine Test Urine Opiates Screen Ur Buprenorphine Scrn Ur Oxycodone Screen Urine Methadone Screen Urine Fentanyl Screen Ur Barbiturates Screen Ur Phencyclidine Scrn Ur Amphetamines Screen U Benzodiazepines Scrn Urine Cocaine Screen U Marijuana (THC) Screen Ethyl Alcohol COVID-19 (RIDDHI) Negative COVID-19 Clin Com See Note 03/12/24 Unknown Urine clean catch - Urine ramirez top Urine Culture - Final Imaging Diagnostic Imaging Impressions Foot X-Ray 03/12/24 02:00 IMPRESSION: No radiopaque foreign body identified. DS: Summary Hospital Course Hospital Course: self-presented to [facility] ED c/o severe anxiety after [place] [facility], where she reports her older brother was killed. she was described by CARE team as disorganized, tangential, and expressing HI toward the father's of her children. pt restarted on medication including abilify and lamictal and wellbutrin; agreed to increase abilify to 7.5mg daily; pt plans to discuss LEDEZMA abilify with her outapt providers; mood improved; less labile and less impulsive at dsicharge; showing greater insight and improved judgment Time spent discussing smoking cessation with patient: 3 to 10 minutes Status at Discharge Cognitive/behavioral status at discharge: alert and oriented x 4. mood improved; less labile and less impulsive at dis charge; showing greater insight and improved judgment mood improved; less labile and less impulsive at discharge; showing greater insight and improved judgment. no aggression; no SI or HI; no auditory or visual hallucinations. Functional status at discharge: independent ambulation Overall status at discharge: patient is progressing back to baseline Time Spent with Patient Time attestation: Total time managing care of this patient today _35___ minutes. Time spent: Greater than 30 minutes Specific discharge activities: disucussed in team, met with patient, assess for safety; discuss medications including increase in abilify and how to switch to LEDEZMA; review of discharge plans specifically re: meds Discharge Plan Discharge Anticipated Discharge Date/Time: 03/18/24 11:00 Patient Disposition: Home, Self-Care Discharge Diagnosis: schizoaffective disorder Bipolar Type Referrals: NICOLE MCCLELLAN, THERAPIST [Other] - 03/24/24 10:00 am VELMA REAL, MEDICATION PROVIDER [Other] - 04/09/24 2:00 pm Ling Page, TRACK SERVICE PERSON [Primary Care Provider] - 03/21/24 10:20 am (Dr. Ling Page, [place] [employer] [facility] [phone] Appt. March 21 10:20am) Discharge Medications: New benztropine 0.5 mg Tablet 0.5 mg PO BID Qty: 60 0RF trazodone 50 mg Tablet 50 mg PO BEDTIME MRX1 PRN (Reason: Insomnia) Qty: 30 0RF melatonin 3 mg Tablet 6 mg PO BEDTIME PRN (Reason: Insomnia) Qty: 60 0RF lamotrigine 25 mg Tablet 75 mg PO BEDTIME Qty: 90 0RF magnesium oxide 400 mg (241.3 mg magnesium) Tablet 400 mg PO DAILY PRN (Reason: Headache) Qty: 30 0RF loratadine 10 mg Tablet 10 mg PO DAILY PRN (Reason: itch) Qty: 30 0RF aripiprazole [Abilify] 5 mg Tablet 7.5 mg PO DAILY Qty: 30 0RF bupropion HCl 150 mg Tablet Extended Release 24 Hr 150 mg PO DAILY Qty: 30 0RF Discontinued benztropine 0.5 mg Tablet 0.5 mg PO BID Qty: 60 0RF melatonin 3 mg tablet 2 tab PO QPM PRN (Reason: Insomnia) hydroxyzine HCl 10 mg tablet 10 mg PO TID PRN (Reason: Anxiety) bupropion HCl 100 mg tablet sustained-release 12 hr 100 mg PO QAM lamotrigine 25 mg tablet 75 mg PO BEDTIME aripiprazole 5 mg tablet 5 mg PO DAILY magnesium oxide 400 mg (241.3 mg magnesium) tablet 400 mg PO DAILY PRN (Reason: Headache) loratadine 10 mg tablet 10 mg PO DAILY PRN (Reason: itch) Discharge Orders: Discharge Order (Routine); Ordered 03/18/24 Ordered By: Valeria Christensen Activity on Discharge: As tolerated Stand Alone Forms: Patient Portal Discharge page, Community Support Print Language: Hebrew Care Plan Goals: [facility] medications as [facility] Concerns: depression anxiety Plan of Treatment: continue medications as prescribed discyss long acting injectable abilify with out-patient prescriber Assessment: alert and oriented; mood stable; mildly anxious; able to listen; expresses hope for future; no SI no Hi; speech normal rate and rhythm, thoughts goal oriented and linear. judgment and insight good Discharge Date/Time: 03/18/24 11:50
== END 2024-03-18 11:50 | disposition home or self-care (01) | DRG 750 ==
LOC: HO.ED 03-12 13:52 → HO.PADLT16 03-12 14:49
PROVIDERS: Psychiatry & Neurology Psychiatry; Admitting Provider Psychiatry & Neurology Psychiatry; Emergency Provider Emergency Medicine; PCP Nurse Practitioner Family; Visit Provider Psychiatry & Neurology Psychiatry
DX: F25.0 Schizoaffective disorder, bipolar type (principal); F43.10 Post-traumatic stress disorder, unspecified; Z20.822 Contact with and (suspected) exposure to COVID-19; Z78.1 Physical restraint status; Z63.4 Disappearance and death of family member; Z87.891 Personal history of nicotine dependence; Z79.899 Other long term (current) drug therapy
CPT/HCPCS: 36415; 73630; 80053; 80061; 80307; 81001; 81025; 82607; 82746; 83036; 84439; 84443; 85025; 87086; 87635; 93005; 99285; J1200; J1630; J1885; J2060; S9485

== ENCOUNTER → 2024-03-12 11:30 | Outpatient (BNV) | payer OTHER, SELFPAY | PROVIDERS: Admitting Provider Psychiatry & Neurology Psychiatry; Emergency Provider Emergency Medicine; PCP Nurse Practitioner Family; Visit Provider Internal Medicine | DX: R94.31 Abnormal electrocardiogram [ECG] [EKG] (principal) | CPT/HCPCS: 93010 ==

== ENCOUNTER → 2024-03-12 14:45 | Outpatient (BNV) | payer OTHER, SELFPAY | PROVIDERS: Admitting Provider Psychiatry & Neurology Psychiatry; Emergency Provider Emergency Medicine; PCP Nurse Practitioner Family; Visit Provider Psychiatry & Neurology Psychiatry | DX: F25.0 Schizoaffective disorder, bipolar type (principal) | CPT/HCPCS: 99231; 99232 ==